=== PATIENT | female | born 1995 | race Caucasian/White ===

== ENCOUNTER 2017-11-30 02:02 | Emergency (ER) | payer BC ==
[2017-11-30] MEDS ORDERED: TORAdol 30 mg Injection IV ONE (02:25)
--- NOTE | 2017-11-30 02:25 | ERPHSYRPT ---
- History of Present Illness Time Seen by Provider: 11/30/17 02:20 Historian: patient Exam Limitations: no limitations Patient Subjective Stated Complaint: pt states she has been having pain since approx 2200 and has been increasing since. Triage Nursing Assessment: pt alert and oriented, asnwers questions approp. pt ambulatory with steady gait noted. respirations nonlabored with lungs cta. skin pink warm and dry. heart rate 66 on monitor, sinus rhythm. Physician History: 22 y/o female comes to the ER with complaints of epigastric abdominal pain that started at 11 pm this evening. Pt describes the pain as sharp, constant, 6/10, and pt has not taken any pain meds. Pt denies any fever, chills, nausea, vomiting, diarrhea, constipation or urinary symptoms. No surgical history. Timing/Duration: today Activities at Onset: none Quality: sharpness Abdominal Pain Onset Location: epigastric Pain Radiation: no radiation Severity of Pain-Max: moderate Severity of Pain-Current: moderate Modifying Factors: Improves With: nothing Associated Symptoms: denies symptoms Previous symptoms: no prior history Allergies/Adverse Reactions: No Known Drug Allergies Allergy (Verified 11/30/17 02:24) Home Medications: Dextroamphetamine/Amphetamine [Adderall 20 mg Tablet] 20 mg PO DAILY 11/30/17 [ History] Hx Tetanus, Diphtheria Vaccination/Date Given: No Hx Influenza Vaccination/Date Given: No Hx Pneumococcal Vaccination/Date Given: No Immunizations Up to Date: Yes - Review of Systems Constitutional: No Fever, No Chills Eyes: No Symptoms Ears, Nose, & Throat: No Symptoms Respiratory: No Cough, No Dyspnea Cardiac: No Chest Pain, No Edema, No Syncope Abdominal/Gastrointestinal: Abdominal Pain, No Nausea, No Vomiting, No Diarrhea Genitourinary Symptoms: No Dysuria Musculoskeletal: No Back Pain, No Neck Pain Skin: No Rash Neurological: No Dizziness, No Focal Weakness, No Sensory Changes Psychological: No Symptoms Endocrine: No Symptoms All Other Systems: Reviewed and Negative - Past Medical History Pertinent Past Medical History: No Neurological History: No Pertinent History ENT History: No Pertinent History Cardiac History: No Pertinent History Respiratory History: No Pertinent History Endocrine Medical History: No Pertinent History Musculoskeletal History: No Pertinent History GI Medical History: No Pertinent History History: No Pertinent History Psycho-Social History: No Pertinent History Female Reproductive Disorders: No Pertinent History - Past Surgical History Past Surgical History: No Cardiac: No Pertinent History Respiratory: No Pertinent History Gastrointestinal: No Pertinent History Genitourinary: No Pertinent History - Social History Smoking Status: Former smoker How long have you smoked: 4 yrs Exposure to second hand smoke: No Drug Use: none Patient Lives Alone: Yes - Female History Hx Last Menstrual Period: currently Hx Now: No - Nursing Vital Signs Nursing Vital Signs: Initial Vital Signs Temperature 97.4 F 11/30/17 02:07 Pulse Rate 66 11/30/17 02:07 Respiratory Rate 16 11/30/17 02:07 Blood Pressure 107/75 11/30/17 02:07 O2 Sat by Pulse Oximetry 100 11/30/17 02:07 Pain Scale Pain Intensity 5 - Physical Exam General Appearance: no apparent distress, alert Eye Exam: PERRL/EOMI, eyes nml inspection Ears, Nose, Throat Exam: normal ENT inspection, pharynx normal, moist mucous membranes Neck Exam: normal inspection, non-tender, supple, full range of motion Respiratory Exam: normal breath sounds, lungs clear, No respiratory distress Cardiovascular Exam: regular rate/rhythm, normal heart sounds Gastrointestinal/Abdomen Exam: soft, normal bowel sounds, tenderness, No distention, No mass Back Exam: normal inspection, normal range of motion, No CVA tenderness, No vertebral tenderness Extremity Exam: normal inspection, normal range of motion, pelvis stable Neurologic Exam: alert, oriented x 3, cooperative, normal mood/affect, nml cerebellar function, sensation nml, No motor deficits Skin Exam: normal color, warm, dry SpO2: 100 Oxygen Delivery: Room Air - Course Nursing assessment & vital signs reviewed: Yes EKG Interpreted by Me: RATE, NORMAL AXIS, NORMAL INTERVALS, NORMAL QRS, NORMAL ST-T Ordered Tests: Active Orders 24 hr Category Date Time Status IV Insertion STAT Care 11/30/17 02:25 Active ABDOMEN AND PELVIS W CONTRAST [CT] Stat Exams 11/30/17 02:25 Taken AMYLASE Stat Lab 11/30/17 02:32 Completed CBC W DIFF Stat Lab 11/30/17 02:32 Completed CMP Stat Lab 11/30/17 02:32 Completed HCG QUALITATIVE,SERUM Stat Lab 11/30/17 02:32 Completed LIPASE Stat Lab 11/30/17 02:32 Completed Lactic Acid Stat Lab 11/30/17 02:32 Completed UA W/ MICROSCOPIC Stat Lab 11/30/17 03:06 Completed Medication Summary Discontinued Medications Generic Name Dose Route Start Last Admin Trade Name Regan PRN Reason Stop Dose Admin Ketorolac Tromethamine 30 mg 11/30/17 02:25 11/30/17 02:34 Toradol 30 Mg Injection IV 11/30/17 02:26 30 mg STAT ONE Administration Ketorolac Tromethamine Confirm 11/30/17 02:27 Toradol 30 Mg Injection Administered 11/30/17 02:28 Dose 30 mg .ROUTE .STK-MED ONE Lab/Rad Data: Laboratory Result Diagrams 11/30/17 02:32 11/30/17 02:32 Laboratory Results 11/30/17 11/30/17 11/30/17 Range/Units 03:06 02:32 02:32 WBC (4.0-10.5) K/mm3 RBC (4.1-5.4) M/mm3 Hgb (12.0-16.0) gm/dl Hct (35-47) % MCV (78-100) fl MCH (26-32) pg MCHC (32-36) g/dl RDW (11.5-14.0) % Plt Count (150-450) K/mm3 MPV (6-9.5) fl Gran % (36.0-66.0) % Eos # (Auto) (0-0.5) Absolute Lymphs (auto) (1.0-4.6) Absolute Monos (auto) (0.0-1.3) Lymphocytes % (24.0-44.0) % Monocytes % (0.0-12.0) % Eosinophils % (0.00-5.0) % Basophils % (0.0-0.4) % Absolute Granulocytes (1.4-6.9) Basophils # (0-0.4) Sodium 141 (137-145) mmol/L Potassium 4.0 (3.5-5.1) mmol/L Chloride 106 (98-107) mmol/L Carbon Dioxide 25 (22-30) mmol/L Anion Gap 13.8 (5-15) MEQ/L BUN 13 (7-17) mg/dL Creatinine 0.69 (0.52-1.04) mg/dL Estimated GFR > 60.0 ML/MIN Glucose 90 (74-106) mg/dL Lactic Acid (0.4-2.0) Calcium 9.5 (8.4-10.2) mg/dL Total Bilirubin 0.20 (0.2-1.3) mg/dL AST 21 (14-36) U/L ALT 14 (0-35) U/L Alkaline Phosphatase 68 (38-126) U/L Serum Total Protein 7.6 (6.3-8.2) g/dL Albumin 4.4 (3.5-5.0) g/dL Amylase 66 (30-110) U/L Lipase 91 (23-300) U/L Serum , Qual NEGATIVE (Negative) Ur Collection Type VOID Urine Color YELLOW (YELLOW) Urine Appearance CLEAR (CLEAR) Urine pH 5.0 (5-6) Ur Specific [place] 1.025 (1.005-1.025) Urine Protein NEGATIVE (Negative) Urine Ketones NEGATIVE (NEGATIVE) Urine Blood 50 (0-5) Jeffrey/ul Urine Nitrite NEGATIVE (NEGATIVE) Urine Bilirubin NEGATIVE (NEGATIVE) Urine Urobilinogen NORMAL (0-1) mg/dL Ur Leukocyte Esterase NEGATIVE (NEGATIVE) Urine Microscopic RBC 5-10 (0-2) /HPF Urine Microscopic WBC 0-2 (0-5) /HPF Ur Epithelial Cells MODERATE (FEW) /HPF Urine Bacteria FEW (NEGATIVE) /HPF Urine Mucus MODERATE (NEGATIVE) /HPF Urine Culture Reflexed NO (NO) Urine Glucose NEGATIVE (NEGATIVE) mg/dL Specimen Received 11/30/17 0300 11/30/17 11/30/17 Range/Units 02:32 02:32 WBC 8.7 (4.0-10.5) K/mm3 RBC 4.52 (4.1-5.4) M/mm3 Hgb 12.5 (12.0-16.0) gm/dl Hct 40.8 (35-47) % MCV 90.3 (78-100) fl MCH 27.7 (26-32) pg MCHC 30.6 L (32-36) g/dl RDW 13.6 (11.5-14.0) % Plt Count 236 (150-450) K/mm3 MPV 9.4 (6-9.5) fl Gran % 56.6 (36.0-66.0) % Eos # (Auto) 0.30 (0-0.5) Absolute Lymphs (auto) 2.79 (1.0-4.6) Absolute Monos (auto) 0.65 (0.0-1.3) Lymphocytes % 32.2 (24.0-44.0) % Monocytes % 7.5 (0.0-12.0) % Eosinophils % 3.5 (0.00-5.0) % Basophils % 0.2 (0.0-0.4) % Absolute Granulocytes 4.91 (1.4-6.9) Basophils # 0.02 (0-0.4) Sodium (137-145) mmol/L Potassium (3.5-5.1) mmol/L Chloride (98-107) mmol/L Carbon Dioxide (22-30) mmol/L Anion Gap (5-15) MEQ/L BUN (7-17) mg/dL Creatinine (0.52-1.04) mg/dL Estimated GFR ML/MIN Glucose (74-106) mg/dL Lactic Acid 0.7 (0.4-2.0) Calcium (8.4-10.2) mg/dL Total Bilirubin (0.2-1.3) mg/dL AST (14-36) U/L ALT (0-35) U/L Alkaline Phosphatase (38-126) U/L Serum Total Protein (6.3-8.2) g/dL Albumin (3.5-5.0) g/dL Amylase (30-110) U/L Lipase (23-300) U/L Serum , Qual (Negative) Ur Collection Type Urine Color (YELLOW) Urine Appearance (CLEAR) Urine pH (5-6) Ur Specific [place] (1.005-1.025) Urine Protein (Negative) Urine Ketones (NEGATIVE) Urine Blood (0-5) Jeffrey/ul Urine Nitrite (NEGATIVE) Urine Bilirubin (NEGATIVE) Urine Urobilinogen (0-1) mg/dL Ur Leukocyte Esterase (NEGATIVE) Urine Microscopic RBC (0-2) /HPF Urine Microscopic WBC (0-5) /HPF Ur Epithelial Cells (FEW) /HPF Urine Bacteria (NEGATIVE) /HPF Urine Mucus (NEGATIVE) /HPF Urine Culture Reflexed (NO) Urine Glucose (NEGATIVE) mg/dL Specimen Received - Progress Progress: improved Progress Note: 11/30/17 04:20 Pt rates her pain as a 4/10 after receiving toradol. The CT scan abd/pelvis shows multiple gallstones, with at least one near the gallbladder neck. There may be a calculus in the cystic duct. No elevation in liver enzymes and no white count or fever. I have offered for the patient to be admitted and get the abdominal US later this morning, but she reports that she has to bring her child to school. She wants to come back after 8 am to get the US done. - Departure Time of Disposition: 04:23 Departure Disposition: Home Clinical Impression: Gallstones Condition: Stable Critical Care Time: No Referrals: MANUEL SNYDER [Primary Care Provider] - Instructions: Gallstones (DC) Additional Instructions: Go to Radiology at 9:30am to have an abdominal ultrasound performed at 9:30am.
[2017-11-30] MEDS ORDERED: TORAdol 30 mg Injection ONE (02:27)
[2017-11-30 02:36] LABS: BASOPHIL % 0.2 % (0.0-0.4); Basophil (Absolute #) 0.02 (0-0.4); Eosinophil % 3.5 % (0.00-5.0); Granulocyte Absolute (ANC) 4.91 (1.4-6.9); Granulocytes % 56.6 % (36.0-66.0); Hematocrit 40.8 % (35-47); Hemoglobin 12.5 gm/dl (12.0-16.0); Lymphocyte (Absolute #) 2.79 (1.0-4.6); Lymphocytes % 32.2 % (24.0-44.0); Mean Cell Volume 90.3 fl (78-100); Mean Corpuscular Hemoglobin 27.7 pg (26-32); Mean Corpuscular Hgb Concent. 30.6 g/dl (32-36); Mean Platelet Volume 9.4 fl (6-9.5); Monocyte (Absolute #) 0.65 (0.0-1.3); Monocytes % 7.5 % (0.0-12.0); Platelet Count 236 K/mm3 (150-450); Red Blood Count 4.52 M/mm3 (4.1-5.4); Red Cell Distribution Width 13.6 % (11.5-14.0); White Blood Count 8.7 K/mm3 (4.0-10.5)
[2017-11-30 02:57] LABS: ALBUMIN 4.4 g/dL (3.5-5.0); ALKALINE PHOSPHATASE 68 U/L (38-126); AMYLASE 66 U/L (30-110); ANION GAP 13.8 MEQ/L (5-15); BLOOD UREA NITROGEN 13 mg/dL (7-17); CHLORIDE 106 mmol/L (98-107); Calcium 9.5 mg/dL (8.4-10.2); Carbon Dioxide 25 mmol/L (22-30); Creatinine 1 0.69 mg/dL (0.52-1.04); Glucose 90 mg/dL (74-106); LIPASE 91 U/L (23-300); SGOT/AST 21 U/L (14-36); SGPT/ALT 14 U/L (0-35); SODIUM 141 mmol/L (137-145); Total Protein 7.6 g/dL (6.3-8.2)
[2017-11-30 03:16] LABS: Appearance CLEAR (CLEAR); Bilirubin NEGATIVE (NEGATIVE); Blood 50 Ery/ul (0-5); Glucose NEGATIVE (NEGATIVE); Ketones NEGATIVE (NEGATIVE); Leukocyte Esterase NEGATIVE (NEGATIVE); Nitrite NEGATIVE (NEGATIVE); Protein,Urine Dip NEGATIVE (Negative); Specific Gravity 1.025 (1.005-1.025); Urobilinogen NORMAL mg/dL (0-1)
[2017-11-30 03:17] LABS: Bacteria FEW /HPF (NEGATIVE); Epithelial Cells MODERATE /HPF (FEW); Mucus MODERATE /HPF (NEGATIVE); WBC 0-2 /HPF (0-5)
[2017-11-30 03:49] VITALS: PULSE 78
[2017-11-30 04:13] VITALS: O2SAT 100
[2017-11-30 04:24] VITALS: BP 105/49
--- NOTE | 2017-11-30 09:12 | XRAY ---
Indication: Upper abdominal pain. Multiple contiguous axial images obtained through the abdomen and pelvis using 80 cc Isovue 370 contrast only. Comparison: July 05, 2009. Lung bases are clear. Heart is not enlarged. Stomach is distended with food. Noncontrasted stomach and bowel loops appear nonobstructed. Moderate diffuse scattered colonic fecal debris throughout. Appendix not seen. No free air. Gallbladder now moderately distended with a few gallstones, largest 11 mm. No abnormal biliary distention. Tampon in situ. Tiny cul-de-sac fluid presumed physiologic from ruptured/leaking cyst. Remaining liver, gallbladder, pancreas, spleen, adrenal glands, kidneys, ureters, bladder, uterus, and aorta appear unremarkable. No pathologic retroperitoneal lymphadenopathy. Osseous structures intact. Impression: 1. Distended gallbladder with gallstones. Gallbladder sonogram may yield further information. 2. Fecal stasis without obstruction. 3. Tiny cul-de-sac fluid presumed from ruptured/leaking cyst. Comment: Preliminary interpretation was made by C. No discrepancy. CT DI 13.93
== END 2017-11-30 04:40 | disposition home or self-care (01) ==
LOC: ED 02:02
DX: K80.80 Other cholelithiasis without obstruction (principal)
CPT/HCPCS: 36000; 36415; 74177; 80053; 81000; 82150; 83605; 83690; 84703; 85025; 96374; 99283; 99284; J1885

== ENCOUNTER 2017-12-02 05:34 | Emergency (ER) | payer BC ==
[2017-12-02] MEDS ORDERED: MORPHINE SULFATE 4 MG INJ IV ONE (06:04)
[2017-12-02] MEDS ORDERED: Zofran 4 MG/2 ML VIAL IV ONE (06:05)
[2017-12-02] MEDS ORDERED: Zofran 4 MG/2 ML VIAL ONE (06:07)
[2017-12-02] MEDS ORDERED: MORPHINE SULFATE 4 MG INJ ONE (06:08)
[2017-12-02] MEDS ORDERED: Sodium Chloride 0.9% 1000 ML 1,000 ML IV STA (06:10)
--- NOTE | 2017-12-02 06:10 | ERPHSYRPT ---
- History of Present Illness Time Seen by Provider: 12/02/17 06:00 Historian: patient Exam Limitations: no limitations Patient Subjective Stated Complaint: Was here on the and was told that she has gall stones and to come back if the pain got worse. She followed up with Lia Romero and was told that she couldn't get in to see the surgeon until the . Triage Nursing Assessment: Pt A&O x3, Was here on the and was told that she has gall stones and to come back if the pain got worse. She followed up with Lia Romero and was told that she couldn't get in to see the surgeon until the . bowel sounds heard in all 4 quadrants, last bm 12/01/2017 with no issues, pain in all quadrants of abdomen during palpation, lungs clear, pulses normal, vitals wnl, bp 97/75, doesn't appear to be in any distress Physician History: 22 y/o female comes to the ER with complaints of epigastric and RUQ abdominal pain that started early this morning waking her up from her sleep. Pt was diagnosed with gallstones 2 days ago. Pt describes the pain as sharp, intermittent, 7/10, with radiation to back and pt has not taken any pain meds. Pt denies any fever, chills, nausea, vomiting, diarrhea or decrease appetite. Timing/Duration: today Activities at Onset: none Quality: sharpness Abdominal Pain Onset Location: RUQ, epigastric Pain Radiation: back Severity of Pain-Max: moderate Severity of Pain-Current: moderate Modifying Factors: Improves With: nothing Associated Symptoms: denies symptoms Previous symptoms: same symptoms as today Allergies/Adverse Reactions: No Known Drug Allergies Allergy (Verified 12/02/17 05:48) Home Medications: Dextroamphetamine/Amphetamine [Adderall 20 mg Tablet] 20 mg PO DAILY 11/30/17 [ History] Hx Tetanus, Diphtheria Vaccination/Date Given: No Hx Influenza Vaccination/Date Given: No Hx Pneumococcal Vaccination/Date Given: No - Review of Systems Constitutional: No Fever, No Chills Eyes: No Symptoms Ears, Nose, & Throat: No Symptoms Respiratory: No Cough, No Dyspnea Cardiac: No Chest Pain, No Edema, No Syncope Abdominal/Gastrointestinal: Abdominal Pain, No Nausea, No Vomiting, No Diarrhea Genitourinary Symptoms: No Dysuria Musculoskeletal: No Back Pain, No Neck Pain Skin: No Rash Neurological: No Dizziness, No Focal Weakness, No Sensory Changes Psychological: No Symptoms Endocrine: No Symptoms All Other Systems: Reviewed and Negative - Past Medical History Pertinent Past Medical History: No Neurological History: No Pertinent History ENT History: No Pertinent History Cardiac History: No Pertinent History Respiratory History: No Pertinent History Endocrine Medical History: No Pertinent History Musculoskeletal History: No Pertinent History GI Medical History: No Pertinent History History: No Pertinent History Psycho-Social History: No Pertinent History Female Reproductive Disorders: No Pertinent History - Past Surgical History Past Surgical History: No Cardiac: No Pertinent History Respiratory: No Pertinent History Gastrointestinal: No Pertinent History Genitourinary: No Pertinent History - Social History Smoking Status: Former smoker How long have you smoked: 4 yrs Exposure to second hand smoke: No Drug Use: none Patient Lives Alone: Yes - Female History Hx Last Menstrual Period: 11/29/2017 Hx Now: No - Nursing Vital Signs Nursing Vital Signs: Initial Vital Signs Temperature 97.6 F 12/02/17 05:38 Pulse Rate 69 12/02/17 05:38 Blood Pressure 97/75 12/02/17 05:38 O2 Sat by Pulse Oximetry 99 12/02/17 05:38 Pain Scale Pain Intensity 7 - Physical Exam General Appearance: no apparent distress, alert Eye Exam: PERRL/EOMI, eyes nml inspection Ears, Nose, Throat Exam: normal ENT inspection, pharynx normal, moist mucous membranes Neck Exam: normal inspection, non-tender, supple, full range of motion Respiratory Exam: normal breath sounds, lungs clear, No respiratory distress Cardiovascular Exam: regular rate/rhythm, normal heart sounds Gastrointestinal/Abdomen Exam: soft, normal bowel sounds, tenderness ( epigastric and RUQ abdominal tenderness), No mass Back Exam: normal inspection, normal range of motion, No CVA tenderness, No vertebral tenderness Extremity Exam: normal inspection, normal range of motion, pelvis stable Neurologic Exam: alert, oriented x 3, cooperative, normal mood/affect, nml cerebellar function, sensation nml, No motor deficits Skin Exam: normal color, warm, dry SpO2: 99 Oxygen Delivery: Room Air - Course Nursing assessment & vital signs reviewed: Yes Ordered Tests: Active Orders 24 hr Category Date Time Status IV Insertion STAT Care 12/02/17 06:04 Active CBC W DIFF Stat Lab 12/02/17 06:22 Completed CMP Stat Lab 12/02/17 06:22 Completed Medication Summary Generic Name Dose Route Start Last Admin Trade Name Regan PRN Reason Stop Dose Admin Sodium Chloride 1,000 mls @ 999 mls/hr 12/02/17 06:10 12/02/17 06:21 Sodium Chloride 0.9% 1000 Ml IV 12/02/17 07:10 999 mls/hr .[id number] STA Administration Discontinued Medications Generic Name Dose Route Start Last Admin Trade Name Regan PRN Reason Stop Dose Admin Sodium Chloride Confirm 12/02/17 06:21 Sodium Chloride 0.9% 1000 Ml Administered 12/02/17 06:22 Dose 1,000 mls @ ud .ROUTE .STK-MED ONE Morphine Sulfate 4 mg 12/02/17 06:04 12/02/17 06:21 Morphine Sulfate 4 Mg Inj IV 12/02/17 06:05 4 mg STAT ONE Administration Morphine Sulfate Confirm 12/02/17 06:08 Morphine Sulfate 4 Mg Inj Administered 12/02/17 06:09 Dose 4 mg .ROUTE .STK-MED ONE Ondansetron HCl 4 mg 12/02/17 06:05 12/02/17 06:21 Zofran 4 Mg/2 Ml Vial IV 12/02/17 06:06 4 mg STAT ONE Administration Ondansetron HCl Confirm 12/02/17 06:07 Zofran 4 Mg/2 Ml Vial Administered 12/02/17 06:08 Dose 4 mg .ROUTE .STK-MED ONE Lab/Rad Data: Laboratory Result Diagrams 12/02/17 06:22 12/02/17 06:22 Laboratory Results 12/02/17 12/02/17 Range/Units 06:22 06:22 WBC 7.0 (4.0-10.5) K/mm3 RBC 4.16 (4.1-5.4) M/mm3 Hgb 11.9 L (12.0-16.0) gm/dl Hct 37.3 (35-47) % MCV 89.7 (78-100) fl MCH 28.6 (26-32) pg MCHC 31.9 L (32-36) g/dl RDW 13.3 (11.5-14.0) % Plt Count 217 (150-450) K/mm3 MPV 9.4 (6-9.5) fl Gran % 54.4 (36.0-66.0) % Eos # (Auto) 0.30 (0-0.5) Absolute Lymphs (auto) 2.29 (1.0-4.6) Absolute Monos (auto) 0.59 (0.0-1.3) Lymphocytes % 32.6 (24.0-44.0) % Monocytes % 8.4 (0.0-12.0) % Eosinophils % 4.3 (0.00-5.0) % Basophils % 0.3 (0.0-0.4) % Absolute Granulocytes 3.82 (1.4-6.9) Basophils # 0.02 (0-0.4) Sodium 140 (137-145) mmol/L Potassium 4.0 (3.5-5.1) mmol/L Chloride 106 (98-107) mmol/L Carbon Dioxide 24 (22-30) mmol/L Anion Gap 13.6 (5-15) MEQ/L BUN 17 (7-17) mg/dL Creatinine 0.62 (0.52-1.04) mg/dL Estimated GFR > 60.0 ML/MIN Glucose 104 (74-106) mg/dL Calcium 9.2 (8.4-10.2) mg/dL Total Bilirubin < 0.10 L (0.2-1.3) mg/dL AST 20 (14-36) U/L ALT 15 (0-35) U/L Alkaline Phosphatase 78 (38-126) U/L Serum Total Protein 6.8 (6.3-8.2) g/dL Albumin 3.9 (3.5-5.0) g/dL - Progress Progress: improved Progress Note: 12/02/17 06:37 The patient feels better after receiving morphine and zofran. The liver enzymes are within normal limits. The patient will be d/c home on percocet and zofran. Pt will F/U with general surgeon on 12/16. - Departure Time of Disposition: 06:38 Departure Disposition: Home Clinical Impression: Gallstones Condition: Stable Critical Care Time: No Referrals: MANUEL SNYDER [Primary Care Provider] - Instructions: Gallstones (DC) Additional Instructions: Follow up with your general surgeon on 12/16 as scheduled. Return to the ER if you should have worsening abdominal pain, nausea, vomiting, fever or chills. Prescriptions: Ondansetron ODT 4 MG [Zofran Odt 4 mg] 4 mg PO Q6H PRN PRN #20 tab.rapdis PRN Reason: Nausea/Vomiting Oxycodone HCl/Acetaminophen [Percocet 5-325 mg Tablet] 1 each PO QID PRN #20 tablet MDD 4 PRN Reason: Pain
[2017-12-02] MEDS ORDERED: Sodium Chloride 0.9% 1000 ML 1,000 ML ONE (06:21)
[2017-12-02 06:24] LABS: BASOPHIL % 0.3 % (0.0-0.4); Basophil (Absolute #) 0.02 (0-0.4); Eosinophil % 4.3 % (0.00-5.0); Granulocyte Absolute (ANC) 3.82 (1.4-6.9); Granulocytes % 54.4 % (36.0-66.0); Hematocrit 37.3 % (35-47); Hemoglobin 11.9 gm/dl (12.0-16.0); Lymphocyte (Absolute #) 2.29 (1.0-4.6); Lymphocytes % 32.6 % (24.0-44.0); Mean Cell Volume 89.7 fl (78-100); Mean Corpuscular Hemoglobin 28.6 pg (26-32); Mean Corpuscular Hgb Concent. 31.9 g/dl (32-36); Mean Platelet Volume 9.4 fl (6-9.5); Monocyte (Absolute #) 0.59 (0.0-1.3); Monocytes % 8.4 % (0.0-12.0); Platelet Count 217 K/mm3 (150-450); Red Blood Count 4.16 M/mm3 (4.1-5.4); Red Cell Distribution Width 13.3 % (11.5-14.0)
[2017-12-02 06:40] LABS: ALBUMIN 3.9 g/dL (3.5-5.0); ALKALINE PHOSPHATASE 78 U/L (38-126); ANION GAP 13.6 MEQ/L (5-15); BILIRUBIN,TOTAL < 0.10 mg/dL (0.2-1.3); BLOOD UREA NITROGEN 17 mg/dL (7-17); CHLORIDE 106 mmol/L (98-107); Calcium 9.2 mg/dL (8.4-10.2); Carbon Dioxide 24 mmol/L (22-30); Creatinine 1 0.62 mg/dL (0.52-1.04); Glucose 104 mg/dL (74-106); SGOT/AST 20 U/L (14-36); SGPT/ALT 15 U/L (0-35); SODIUM 140 mmol/L (137-145); Total Protein 6.8 g/dL (6.3-8.2)
[2017-12-02 06:55] VITALS: BP 105/70; PULSE 77; O2SAT 100
== END 2017-12-02 06:55 | disposition home or self-care (01) ==
LOC: ED 05:34
DX: K80.80 Other cholelithiasis without obstruction (principal)
CPT/HCPCS: 36000; 36415; 80053; 85025; 96360; 96374; 96375; 99283; 99284; J2270; J2405

== ENCOUNTER 2017-12-07 22:45 | Emergency (ER) | payer BC ==
[2017-12-07] MEDS: BENADRYL 50 MG/ML IV ONE (23:53)
[2017-12-07] MEDS: solu-MEDROL 125 MG IV ONE (23:53)
[2017-12-08] MEDS ORDERED: TORAdol 30 mg Injection ONE
[2017-12-08] MEDS ORDERED: Sodium Chloride 0.9% 1000 ML 1,000 ML ONE
--- NOTE | 2017-12-08 00:02 | ERPHSYRPT ---
- History of Present Illness Time Seen by Provider: 12/07/17 23:00 Historian: patient Exam Limitations: clinical condition Patient Subjective Stated Complaint: Pt arrives to ER with c/o midsternal chest pain that radiates down into her RUQ abdomen states was seen her 1 week ago and found out her gallbladder is bad and needs removed. States was told to come back if started vomiting, which pt began around 2100 tonight when pain became worse accompanied by headache. States pain is still present and as strong as before. Triage Nursing Assessment: pt does not appear to be in any distress at this time. States RUQ abdomen is tender upon palpation. Lungs clear. Bowel sounds present and WDL in all four quadrants. Heart sounds WDL Physician History: PATIENT RECENTLY DIAGNOSED WITH GALLSTONES ON 11/30/2017 VIA ULTRASOUND, COMPLAINS OF EPIGASTRIC PAINS THROUGHTOUT THE DAY RADIATES TO RIGHT SHOULDER BLADE. DENIES FEVER, CHILLS. Timing/Duration: today Activities at Onset: none Quality: sharpness Abdominal Pain Onset Location: RUQ, epigastric Pain Radiation: scapula Severity of Pain-Max: moderate Severity of Pain-Current: moderate Modifying Factors: Improves With: vomiting Associated Symptoms: nausea, vomiting Previous symptoms: same symptoms as today Allergies/Adverse Reactions: No Known Drug Allergies Allergy (Verified 12/07/17 23:00) Home Medications: Dextroamphetamine/Amphetamine [Adderall 20 mg Tablet] 20 mg PO DAILY 11/30/17 [ History] Hx Tetanus, Diphtheria Vaccination/Date Given: No Hx Influenza Vaccination/Date Given: No Hx Pneumococcal Vaccination/Date Given: No Immunizations Up to Date: Yes - Review of Systems Constitutional: No Fever, No Chills Eyes: No Symptoms Ears, Nose, & Throat: No Symptoms Respiratory: No Symptoms, No Cough, No Dyspnea Cardiac: No Symptoms, No Chest Pain, No Edema, No Syncope Abdominal/Gastrointestinal: Abdominal Pain, Nausea, Vomiting, No Diarrhea Genitourinary Symptoms: No Dysuria Musculoskeletal: No Symptoms, No Back Pain, No Neck Pain Skin: No Rash Neurological: No Dizziness, No Focal Weakness, No Sensory Changes Psychological: No Symptoms Endocrine: No Symptoms All Other Systems: Reviewed and Negative - Past Medical History Pertinent Past Medical History: Yes Neurological History: No Pertinent History ENT History: No Pertinent History Cardiac History: No Pertinent History Respiratory History: No Pertinent History Endocrine Medical History: No Pertinent History Musculoskeletal History: No Pertinent History GI Medical History: No Pertinent History History: No Pertinent History Psycho-Social History: No Pertinent History Female Reproductive Disorders: No Pertinent History - Past Surgical History Past Surgical History: Yes Cardiac: No Pertinent History Respiratory: No Pertinent History Gastrointestinal: No Pertinent History Genitourinary: No Pertinent History - Social History Smoking Status: Never smoker How long have you smoked: 4 yrs Exposure to second hand smoke: No Drug Use: none Patient Lives Alone: No - Female History Hx Last Menstrual Period: last thursday Hx Now: No - Nursing Vital Signs Nursing Vital Signs: Initial Vital Signs Temperature 97.7 F 12/07/17 22:50 Pulse Rate 76 12/07/17 22:50 Respiratory Rate 18 12/07/17 22:50 Blood Pressure 115/71 12/07/17 22:50 O2 Sat by Pulse Oximetry 98 12/07/17 22:50 Pain Scale Pain Intensity 0 - Physical Exam General Appearance: mild distress Eye Exam: PERRL/EOMI, eyes nml inspection Ears, Nose, Throat Exam: normal ENT inspection, pharynx normal, moist mucous membranes Neck Exam: normal inspection, non-tender, supple, full range of motion Respiratory Exam: normal breath sounds, lungs clear, No respiratory distress Cardiovascular Exam: regular rate/rhythm, normal heart sounds Gastrointestinal/Abdomen Exam: soft, normal bowel sounds, tenderness (EPIGASTRIC , RIGTH UPPER QUAD TENDERNESS), No mass Back Exam: normal inspection, normal range of motion, No CVA tenderness, No vertebral tenderness Extremity Exam: normal inspection, normal range of motion, pelvis stable Neurologic Exam: alert, oriented x 3, cooperative, normal mood/affect, nml cerebellar function, sensation nml, No motor deficits Skin Exam: normal color, warm, dry SpO2 Interpretation: normal SpO2: 98 Oxygen Delivery: Room Air Ordered Tests: Active Orders 24 hr Category Date Time Status Clean Catch Urine Specimen STAT Care 12/07/17 23:56 Active Medication Summary Discontinued Medications Generic Name Dose Route Start Last Admin Trade Name Freq PRN Reason Stop Dose Admin Diphenhydramine HCl 50 mg 12/07/17 23:41 12/07/17 23:53 Benadryl 50 Mg/Ml IV 12/07/17 23:42 Not Given STAT ONE Fentanyl Citrate 100 mcg 12/08/17 00:26 12/08/17 00:35 Sublimaze 100 Mcg/2 Ml IV 12/08/17 00:27 100 mcg STAT ONE Administration Fentanyl Citrate Confirm 12/08/17 00:28 Sublimaze 100 Mcg/2 Ml Administered 12/08/17 00:29 Dose 100 mcg .ROUTE .STK-MED ONE Sodium Chloride 1,000 mls @ 999 mls/hr 12/07/17 23:56 12/08/17 00:06 Sodium Chloride 0.9% 1000 Ml IV 12/08/17 00:56 999 mls/hr .Q1H1M STA Administration Sodium Chloride Confirm 12/08/17 00:00 Sodium Chloride 0.9% 1000 Ml Administered 12/08/17 00:01 Dose 1,000 mls @ ud .ROUTE .STK-MED ONE Ketorolac Tromethamine 30 mg 12/07/17 23:56 12/08/17 00:06 Toradol 30 Mg Injection IV 12/07/17 23:57 30 mg STAT ONE Administration Ketorolac Tromethamine Confirm 12/08/17 00:00 Toradol 30 Mg Injection Administered 12/08/17 00:01 Dose 30 mg .ROUTE .STK-MED ONE Methylprednisolone Sodium Succinate 125 mg 12/07/17 23:41 12/07/17 23:53 Solu-Medrol 125 Mg IV 12/07/17 23:42 Not Given STAT ONE Ondansetron HCl 4 mg 12/07/17 23:56 12/08/17 00:07 Zofran 4 Mg/2 Ml Vial IV 12/07/17 23:57 4 mg STAT ONE Administration Ondansetron HCl Confirm 12/08/17 00:00 Zofran 4 Mg/2 Ml Vial Administered 12/08/17 00:01 Dose 4 mg .ROUTE .STK-MED ONE Ondansetron HCl 4 mg 12/08/17 00:26 12/08/17 00:35 Zofran 4 Mg/2 Ml Vial IV 12/08/17 00:27 4 mg STAT ONE Administration Ondansetron HCl Confirm 12/08/17 00:28 Zofran 4 Mg/2 Ml Vial Administered 12/08/17 00:29 Dose 4 mg .ROUTE .STK-MED ONE Lab/Rad Data: Laboratory Result Diagrams 12/07/17 00:04 12/07/17 00:04 Laboratory Results 12/07/17 12/07/17 12/07/17 Range/Units 01:03 00:04 00:04 WBC 7.8 (4.0-10.5) K/mm3 RBC 4.47 (4.1-5.4) M/mm3 Hgb 12.8 (12.0-16.0) gm/dl Hct 39.4 (35-47) % MCV 88.1 (78-100) fl MCH 28.6 (26-32) pg MCHC 32.5 (32-36) g/dl RDW 13.3 (11.5-14.0) % Plt Count 255 (150-450) K/mm3 MPV 9.6 H (6-9.5) fl Gran % 72.1 H (36.0-66.0) % Eos # (Auto) 0.04 (0-0.5) Absolute Lymphs (auto) 1.63 (1.0-4.6) Absolute Monos (auto) 0.49 (0.0-1.3) Lymphocytes % 21.0 L (24.0-44.0) % Monocytes % 6.3 (0.0-12.0) % Eosinophils % 0.5 (0.00-5.0) % Basophils % 0.1 (0.0-0.4) % Absolute Granulocytes 5.58 (1.4-6.9) Basophils # 0.01 (0-0.4) Sodium 139 (137-145) mmol/L Potassium 4.2 (3.5-5.1) mmol/L Chloride 103 (98-107) mmol/L Carbon Dioxide 25 (22-30) mmol/L Anion Gap 15.4 H (5-15) MEQ/L BUN 13 (7-17) mg/dL Creatinine 0.53 (0.52-1.04) mg/dL Estimated GFR > 60.0 ML/MIN Glucose 99 (74-106) mg/dL Calcium 9.9 (8.4-10.2) mg/dL Total Bilirubin 0.50 (0.2-1.3) mg/dL AST 27 (14-36) U/L ALT 23 (0-35) U/L Alkaline Phosphatase 78 (38-126) U/L Serum Total Protein 7.5 (6.3-8.2) g/dL Albumin 4.4 (3.5-5.0) g/dL Amylase 51 (30-110) U/L Lipase 51 (23-300) U/L Ur Collection Type VOID Urine Color YELLOW (YELLOW) Urine Appearance CLEAR (CLEAR) Urine pH 6.0 (5-6) Ur Specific Magazine 1.025 (1.005-1.025) Urine Protein NEGATIVE (Negative) Urine Ketones SMALL (NEGATIVE) Urine Blood NEGATIVE (0-5) Jeffrey/ul Urine Nitrite NEGATIVE (NEGATIVE) Urine Bilirubin NEGATIVE (NEGATIVE) Urine Urobilinogen NORMAL (0-1) mg/dL Ur Leukocyte Esterase TRACE (NEGATIVE) Urine Microscopic RBC 0-2 (0-2) /HPF Urine Microscopic WBC 2-5 (0-5) /HPF Ur Epithelial Cells MODERATE (FEW) /HPF Urine Bacteria FEW (NEGATIVE) /HPF Urine Culture Reflexed NO (NO) Urine Glucose NEGATIVE (NEGATIVE) mg/dL Specimen Received 12/08/17 0110 - Progress Progress Note: 12/08/17 00:02 ADMINISTERED IV NORMAL SALINE 1 LITER/HR, ZOFRAN 4MG TORADOL 30MG IV, FENTANYL 100MCG IV. PAIN RESOLVED NAUSEA PERSIST. 12/08/17 03:21 Counseled pt/family regarding: lab results, diagnosis, need for follow-up - Departure Time of Disposition: 03:30 Departure Disposition: Home Clinical Impression: BILIARY COLIC, CHOLELITHIASIS Condition: Stable Critical Care Time: No Referrals: MANUEL SNYDER [Primary Care Provider] - Additional Instructions: CONTINUE ALL CURRENT MEDICATIONS FOR PAIN AND NAUSEA. BEGIN A CLEAR LIQUID DIET FOR 24 HOURS, THEN ADVANCE DIET TOLERATED. PHENERGAN SUPPOSITORY 25MG PER RECTUM EVERY 4-6 HOURS NEEDED FOR NAUSEA. CONSULT YOUR GENERAL SURGEON TO SCHEDULE EARLIER APPOINTMENT Prescriptions: Promethazine HCl 25 mg Supp [Phenergan 25 mg Supp] 25 mg GA Q4-6HPRN PRN # 10 supp.rect PRN Reason: Nausea
[2017-12-08] MEDS: Sodium Chloride 0.9% 1000 ML 1,000 ML IV STA (00:06)
[2017-12-08] MEDS: TORAdol 30 mg Injection IV ONE (00:06)
[2017-12-08] MEDS: Zofran 4 MG/2 ML VIAL IV ONE ×2 (00:07→00:35)
[2017-12-08 00:08] LABS: BASOPHIL % 0.1 % (0.0-0.4); Basophil (Absolute #) 0.01 (0-0.4); Eosinophil % 0.5 % (0.00-5.0); Eosinophil (Absolute #) 0.04 (0-0.5); Granulocyte Absolute (ANC) 5.58 (1.4-6.9); Granulocytes % 72.1 % (36.0-66.0); Hematocrit 39.4 % (35-47); Hemoglobin 12.8 gm/dl (12.0-16.0); Lymphocyte (Absolute #) 1.63 (1.0-4.6); Mean Cell Volume 88.1 fl (78-100); Mean Corpuscular Hemoglobin 28.6 pg (26-32); Mean Corpuscular Hgb Concent. 32.5 g/dl (32-36); Mean Platelet Volume 9.6 fl (6-9.5); Monocyte (Absolute #) 0.49 (0.0-1.3); Monocytes % 6.3 % (0.0-12.0); Platelet Count 255 K/mm3 (150-450); Red Blood Count 4.47 M/mm3 (4.1-5.4); Red Cell Distribution Width 13.3 % (11.5-14.0); White Blood Count 7.8 K/mm3 (4.0-10.5)
[2017-12-08 00:14] LABS: ALBUMIN 4.4 g/dL (3.5-5.0); ALKALINE PHOSPHATASE 78 U/L (38-126); AMYLASE 51 U/L (30-110); ANION GAP 15.4 MEQ/L (5-15); BLOOD UREA NITROGEN 13 mg/dL (7-17); CHLORIDE 103 mmol/L (98-107); Calcium 9.9 mg/dL (8.4-10.2); Carbon Dioxide 25 mmol/L (22-30); Creatinine 1 0.53 mg/dL (0.52-1.04); Glucose 99 mg/dL (74-106); LIPASE 51 U/L (23-300); Potassium 4.2 mmol/L (3.5-5.1); SGOT/AST 27 U/L (14-36); SGPT/ALT 23 U/L (0-35); SODIUM 139 mmol/L (137-145); Total Protein 7.5 g/dL (6.3-8.2)
[2017-12-08] MEDS ORDERED: Zofran 4 MG/2 ML VIAL ONE ×2 (00:28)
[2017-12-08] MEDS ORDERED: SUBLIMAZE 100 MCG/2 ML ONE (00:28)
[2017-12-08] MEDS: SUBLIMAZE 100 MCG/2 ML IV ONE (00:35)
[2017-12-08 01:35] LABS: Appearance CLEAR (CLEAR); Bilirubin NEGATIVE (NEGATIVE); Blood NEGATIVE Ery/ul (0-5); Glucose NEGATIVE (NEGATIVE); Ketones SMALL (NEGATIVE); Leukocyte Esterase TRACE (NEGATIVE); Nitrite NEGATIVE (NEGATIVE); Protein,Urine Dip NEGATIVE (Negative); Specific Gravity 1.025 (1.005-1.025); Urobilinogen NORMAL mg/dL (0-1)
[2017-12-08 01:36] LABS: Bacteria FEW /HPF (NEGATIVE); Epithelial Cells MODERATE /HPF (FEW)
[2017-12-08 02:33] VITALS: BP 100/57; PULSE 89
[2017-12-08 03:29] VITALS: O2SAT 98
== END 2017-12-08 04:11 | disposition home or self-care (01) ==
LOC: ED 22:45
DX: K80.50 Calculus of bile duct without cholangitis or cholecystitis without obstruction (principal); K80.20 Calculus of gallbladder without cholecystitis without obstruction
CPT/HCPCS: 36000; 36415; 80053; 81000; 82150; 83690; 85025; 96360; 96374; 96375; 96376; 99283; 99284; J1885; J2405; J3010

== ENCOUNTER 2017-12-28 09:36 | Day surgery (SDC) | payer BC ==
--- NOTE | 2017-12-28 07:54 | HP ---
DATE OF SURGERY: 12/28/2017 HISTORY OF PRESENT ILLNESS: The patient is a 22 year-old had pain over a couple of weeks, epigastric pain radiating to her back associated with one vomiting episode. No change in bowel movements. No jaundice. No liver problems in the past or hepatitis. Ultrasound CT showed cholelithiasis. It was felt she had symptomatic cholelithiasis, chronic cholecystitis. Worse with meal. PAST MEDICAL HISTORY: Adult attention deficit hyperactivity disorder. She had some history of some reflux and some anxiety in the past. MEDICATIONS: Adderall, Tri-Sprintec. ALLERGIES: NKDA. FAMILY HISTORY: Negative in regards to this problem. SOCIAL HISTORY: No alcohol abuse. She is a former smoker according to history provided. REVIEW OF SYSTEMS: Twelve systems reviewed per admission assessment. No chest pain or palpitations other systems negative or noncontributory as above and per preadmission questionnaire. PHYSICAL EXAMINATION: GENERAL: No acute distress. HEENT: Sclerae nonicteric. NECK: No JVD. CHEST: Equal excursion, nonlabored breathing. CVS: Regular rate and rhythm. ABDOMEN: Soft, some tenderness in the epigastrium. No peritoneal signs. EXTREMITIES: No significant edema. NEURO: Alert, oriented, moving extremities symmetrically. No gross motor deficits noted. IMPRESSION: Symptomatic cholelithiasis, probable cholecystitis. I feel the patient will benefit from cholecystectomy. She was shown the gallbladder pamphlet and risk sheet, explained the procedure in detail but not limited to bleeding, infection, small risk of bowel injury or trocar injury, small risk of hernia, small risk of bile leak, bile duct injury, retained stone or sludge possibly requiring further procedure either open or ERCP, general risk of anesthesia, deep venous thrombosis, pulmonary embolism, pneumonia, perioperative risk of aches, pains, bloating, constipation and/or loose stools possibly even chronic in nature. She understands possibility that the procedure may not improve her symptoms that she may need further work up and/or testing, other studies, endoscopy, procedures or referrals. She understands as well as the possibility of need to convert to an open procedure, will proceed with laparoscopic cholecystectomy with possible as an outpatient.
[~2017-12-28 09:36] MED LIST: Lactated Ringers 1,000 ML IV ONE; Sensorcaine 0.25% 10 ML ONE
[2017-12-28] MEDS ORDERED: DIPRIVAN 200 MG/20 ML IV ONE (09:37)
[2017-12-28] MEDS ORDERED: SUBLIMAZE 250 MCG/5 ML IJ ONE (09:37)
[2017-12-28] MEDS ORDERED: Zemuron 100 MG/10 ML IJ ONE (09:37)
[2017-12-28] MEDS ORDERED: Astramorph-Pf 5 MG/10 ML IJ ONE (09:37)
[2017-12-28] MEDS ORDERED: Zofran 4 MG/2 ML VIAL IV ONE (09:37)
[2017-12-28] MEDS ORDERED: Decadron 4 MG INJ IV ONE (09:37)
[2017-12-28] MEDS ORDERED: Versed 2 MG/2 ML Injection IV ONE (09:37)
[2017-12-28] MEDS ORDERED: TORAdol 30 mg Injection IJ ONE (09:37)
[2017-12-28] MEDS ORDERED: BRIDION 200MG/2ML IV ONE (09:37)
[2017-12-28] MEDS ORDERED: Lactated Ringers 1,000 ML IV SCH (10:30)
[2017-12-28] MEDS ORDERED: MEFOXIN 2 GM PREMIX** 2 GM/50 ML ML IV SCH (11:00)
[2017-12-28] MEDS ORDERED: SUBLIMAZE 100 MCG/2 ML ONE ×2 (13:56→14:07)
[2017-12-28 15:17] VITALS: O2SAT 97
[2017-12-28 15:26] VITALS: BP 114/59; PULSE 78
--- NOTE | 2017-12-29 08:16 | OP ---
SURGERY DATE/TIME: 12/28/2017 1228 PREOPERATIVE DIAGNOSIS: Symptomatic cholelithiasis, probable chronic cholecystitis. POSTOPERATIVE DIAGNOSIS: Acute exacerbation of chronic cholecystitis, cholelithiasis. PROCEDURE: Laparoscopic cholecystectomy. SURGEON: Dr. Aleksandar Tejeda. ANESTHESIA: General. ESTIMATED BLOOD LOSS: Minimal. INDICATIONS: As noted above. Risks and benefits explained in detail but not limited to and consent obtained. DESCRIPTION OF PROCEDURE AND FINDINGS: The patient was taken to the OR. General anesthesia induced. Abdomen prepped and draped in the usual sterile fashion. After official time out and no disagreement with planned procedure, a transverse incision made at the supraumbilical area. Fascia grasped and pulled upward. Veress needle inserted and tested with saline. Pneumoperitoneum accomplished insufflating opening pressure of 0-15. An 11 mm bladeless port and camera inserted without difficulty followed by two - 5 mm right upper quadrant ports and 5 mm epigastric port. There was no evidence of any intra-abdominal injury secondary to trocar insertion. The patient had a very distended, tense gallbladder with thick wall, acute exacerbation of chronic cholecystitis and cholelithiasis. There had been no evidence of any intra-abdominal injury secondary to trocar insertion or Veress needle placement. It was necessary however to make a separate stab wound in the right upper quadrant along the costal margin. Veress needle inserted. 35% of almost clear hydrops carefully removed from the gallbladder allowing it to be grasped and retracted up over the edge of the liver. Dissection carried posterior, lateral to anterior fashion. Extensive inflammatory reaction, this took quite some time but slowly and carefully main cystic artery and cystic duct infundibular junction were slowly and carefully well skeletonized until the critical view obtained both anteriorly and posteriorly. Once this was accomplished cystic duct was then clipped x3 and divided in usual fashion. The cystic artery clipped x3 and divided in usual fashion. It is quite a vascular gallbladder with some pulsatile side branches off the cystic artery directly on the gallbladder wall this is carefully isolated clipped as necessary directly on the gallbladder wall. Just prior to releasing from final attachments to the anterior edge of the liver the liver re-inspected. There had been a raw edge of the anterior edge of the liver and some raw ooze controlled with some brief bursts of pin point cautery. Good hemostasis is noted. Clips are noted in place in cystic duct and cystic artery stumps. There is no sign of any active bleeding or bile leakage. I felt there is no benefit from drain placement at this point. Gallbladder released from final attachments to the anterior edge of the liver the gallbladder placed in Pleatman sac pulled up in 10/11 port site supraumbilical area. Otherwise just prior to removing with Pleatman it was necessary to open the gallbladder and retrieve a moderately large stones with the Clinton clamp allowing the gallbladder and Pleatman sac to be pulled free and passed off. The liver bed is re-inspected. Clips noted in place in cystic duct and cystic artery stumps. There were no signs of any active bleeding or bile leakage. It was felt there is no benefit from drain placement. At this point the fascial defect /11 is closed with puncture closure device under direct vision of the camera with #1 Vicryl. Pneumoperitoneum decompressed. The wound was irrigated out. Skin incision closed with 4-0 Vicryl. Steri-Strips and sterile dressing applied. 0.25% Marcaine local injected along the skin incision fascial defect. The patient tolerated the procedure well. There were no immediate complications. Findings discussed with the family out in the waiting area. She was transferred to the recovery room in stable condition.
== END 2017-12-28 15:30 | disposition home or self-care (01) ==
LOC: SDC 09:36
PROVIDERS: ATTEND Surgery
DX: K80.10 Calculus of gallbladder with chronic cholecystitis without obstruction (principal)
CPT/HCPCS: 84703; 94250; J0694; J1100; J1885; J2250; J2274; J2405; J2704; J3010

== ENCOUNTER 2022-03-28 15:59 | Emergency (ER) | payer OTHER ==
[2022-03-28 16:20] VITALS: BP 97/68; PULSE 92; O2SAT 98
--- NOTE | 2022-03-28 16:22 | ERPHSYRPT ---
- History of Present Illness Time Seen by Provider: 03/28/22 16:15 Source: patient Exam Limitations: no limitations Physician History: Patient is a 26-year-old female with a presenting complaint of pain in the left mandibular area with facial swelling and suspected abscess. She has not contacted a dentist and she desires an antibiotic. Timing/Duration: gradual onset Severity: severe ENT Location: dental Prearrival Treatment: no prearrival treatment Modifying Factors: Improves With: nothing Associated Symptoms: jaw pain (Left mandibular), tooth pain Allergies/Adverse Reactions: No Known Drug Allergies Allergy (Verified 12/22/17 17:27) Home Medications: Dextroamphetamine/Amphetamine [Adderall Xr 20 mg Capsule] 20 mg PO BID 03/28/22 [History] Hx Tetanus, Diphtheria Vaccination/Date Given: No Hx Influenza Vaccination/Date Given: No Hx Pneumococcal Vaccination/Date Given: No - Review of Systems Constitutional: No Fever, No Chills Eyes: No Symptoms Ears, Nose, & Throat: No Symptoms, Other (Carious left mandibular molar with obvious abscess) Respiratory: No Cough, No Dyspnea Cardiac: No Chest Pain, No Edema, No Syncope Abdominal/Gastrointestinal: No Abdominal Pain, No Nausea, No Vomiting, No Diarrhea Genitourinary Symptoms: No Dysuria Musculoskeletal: No Back Pain, No Neck Pain Skin: No Rash Neurological: No Dizziness, No Focal Weakness, No Sensory Changes Psychological: No Symptoms Endocrine: No Symptoms All Other Systems: Reviewed and Negative - Past Medical History Pertinent Past Medical History: No Neurological History: No Pertinent History ENT History: No Pertinent History Cardiac History: No Pertinent History Respiratory History: No Pertinent History Endocrine Medical History: No Pertinent History Musculoskeletal History: No Pertinent History GI Medical History: Gallbladder Disease History: No Pertinent History Psycho-Social History: No Pertinent History Female Reproductive Disorders: No Pertinent History - Past Surgical History Past Surgical History: Yes Neuro Surgical History: No Pertinent History Cardiac: No Pertinent History Respiratory: No Pertinent History Gastrointestinal: Cholecystectomy Genitourinary: No Pertinent History Musculoskeletal: No Pertinent History Female Surgical History: No Pertinent History - Social History Smoking Status: Never smoker How long have you smoked: 4 yrs Exposure to second hand smoke: No Drug Use: none Patient Lives Alone: No - Physical Exam General Appearance: mild distress, alert Eye Exam: bilateral eye: normal inspection, PERRL, EOMI Nasal Exam: normal inspection Throat Exam: pharynx normal, dental tenderness (Left mandibular first molar fractured and adjacent abscess noted), moist mucus membranes, No tonsillar exudate Neck Exam: non-tender, supple Cardiovascular/Respiratory Exam: normal breath sounds, no respiratory distress Neurologic Exam: alert, oriented x 3, No motor deficits Skin Exam: normal color, warm, dry SpO2 Interpretation: normal O2 Delivery: Room Air - Course Nursing assessment & vital signs reviewed: Yes - Progress Progress: unchanged - Departure Departure Disposition: Home Clinical Impression: Dental abscess Condition: Stable Critical Care Time: No Referrals: DOCTOR,NO FAMILY [Primary Care Provider] - Follow up/PCP as directed Instructions: Tooth Abscess (DC) Prescriptions: clindamycin HCL [Cleocin HCl] 300 mg PO TID 7 Days #21 cap Diclofenac Sodium 50 mg [Voltaren 50 mg] 50 mg PO Q8H 5 Days #15 tab
== END 2022-03-28 16:32 | disposition home or self-care (01) ==
LOC: ED 15:59
DX: K04.7 Periapical abscess without sinus (principal); R68.84 Jaw pain; Z79.899 Other long term (current) drug therapy
CPT/HCPCS: 99281

== ENCOUNTER 2022-10-10 18:50 | Emergency (ER) | payer OTHER ==
[2022-10-10 19:21] VITALS: BP 123/62; O2SAT 99
[2022-10-10] MEDS ORDERED: Marcaine 0.5%/Epinephrine 10 ML IJ ONE (19:27)
[2022-10-10] MEDS ORDERED: XYLOCAINE 1% HCL 20 ML MDV IJ ONE (19:27)
[2022-10-10] MEDS ORDERED: BUPIVACAINE 0.5% VIAL IJ ONE (19:33)
[2022-10-10] MEDS ORDERED: Sensorcaine 0.25% 10 ML ONE (19:35)
[2022-10-10] MEDS ORDERED: XYLOCAINE 1% HCL 20 ML MDV ONE (19:35)
[2022-10-10] MEDS ORDERED: Sensorcaine 0.25% 10 ML IJ ONE (19:36)
--- NOTE | 2022-10-10 19:37 | ERPHSYRPT ---
- History of Present Illness Time Seen by Provider: 10/10/22 19:15 Source: patient Exam Limitations: no limitations Patient Subjective Stated Complaint: Pt reports she woke up with morning with tooth pain only present when she touches it. Tooth pain reported to be on the b ottom on the left side. Triage Nursing Assessment: Pt alert and oriented x3. No apparent respiratory distress. Skin w/p/d. Ambulated to cot without difficulty. Second to last tooth on left side of mouth on bottom is broken off. Physician History: Patient has a left lower broken tooth for a long time and woke up with swelling to her jaw and pain to her tooth. Patient denies any recent dental work, any recent ENT procedures and any trauma to her head, face or neck area prior to the jaw swelling and tooth pain Timing/Duration: abrupt onset, this morning Severity: moderate ENT Location: dental Prearrival Treatment: no prearrival treatment Modifying Factors: Improves With: nothing Associated Symptoms: facial pain/swelling, tooth pain, No ear pain (R), No ear pain (L), No cough, No fever, No chills, No change in hearing, No dizziness, No drooling, No ear drainage, No headache, No hearing loss, No jaw pain, No motion sickness, No nasal congestion/drainage, No epistaxis, No nasal foreign body, No poor fluid intake, No poor solids intake, No ringing of ears, No swollen glands, No sinus infection, No sore throat, No difficulty swallowing, No voice change Allergies/Adverse Reactions: No Known Drug Allergies Allergy (Verified 10/10/22 19:13) Home Medications: Dextroamphetamine/Amphetamine [Adderall Xr 20 mg Capsule] 20 mg PO BID 03/28/22 [History] Hx Tetanus, Diphtheria Vaccination/Date Given: No Hx Influenza Vaccination/Date Given: No Hx Pneumococcal Vaccination/Date Given: No Immunizations Up to Date: No Travel Risk - International Travel Have you traveled outside of the country in past 3 weeks: No - Coronavirus Screening Are you exhibiting any of the following symptoms?: No Close contact with a COVID-19 positive Pt in past 14-21 Days: No - Vaccine Status Have you recieved a Covid-19 vaccination: No - Review of Systems Constitutional: No Fever, No Chills Eyes: No Symptoms, No Eye Pain, No Eye Redness, No Photophobia, No Tearing, No Double Vision Ears, Nose, & Throat: No Ear Pain, No Ear Discharge, No Nose Pain, No Nose Congestion, No Nose Discharge, No Sinus Drainage, No Epistaxis, No Mouth Pain, No Mouth Swelling, No Loose Teeth, No Throat Pain, No Throat Swelling, No Painful Swallowing Respiratory: No Cough, No Dyspnea Cardiac: No Chest Pain, No Edema, No Syncope Abdominal/Gastrointestinal: No Abdominal Pain, No Nausea, No Vomiting, No Diarrhea Genitourinary Symptoms: No Dysuria Musculoskeletal: No Back Pain, No Neck Pain Skin: No Rash Neurological: No Dizziness, No Focal Weakness, No Sensory Changes Psychological: No Symptoms Endocrine: No Symptoms All Other Systems: Reviewed and Negative - Past Medical History Pertinent Past Medical History: Yes Neurological History: No Pertinent History ENT History: No Pertinent History Cardiac History: No Pertinent History Respiratory History: No Pertinent History Endocrine Medical History: No Pertinent History Musculoskeletal History: No Pertinent History GI Medical History: Gallbladder Disease History: No Pertinent History Psycho-Social History: No Pertinent History Female Reproductive Disorders: No Pertinent History - Past Surgical History Past Surgical History: Yes Neuro Surgical History: No Pertinent History Cardiac: No Pertinent History Respiratory: No Pertinent History Gastrointestinal: Cholecystectomy Genitourinary: No Pertinent History Musculoskeletal: No Pertinent History Female Surgical History: No Pertinent History - Social History Smoking Status: Never smoker How long have you smoked: 4 yrs Exposure to second hand smoke: No Drug Use: none Patient Lives Alone: No - Female History Hx Last Menstrual Period: 10/03/22 Hx Now: No - Nursing Vital Signs Nursing Vital Signs: Initial Vital Signs Temperature 98.1 F 10/10/22 19:14 Pulse Rate 83 10/10/22 19:14 Respiratory Rate 17 10/10/22 19:14 Blood Pressure 123/62 10/10/22 19:14 O2 Sat by Pulse Oximetry 99 10/10/22 19:14 Pain Scale Pain Intensity 0 - Physical Exam General Appearance: no apparent distress, alert Eye Exam: bilateral eye: normal inspection, PERRL, EOMI Ear Exam: bilateral ear: auricle normal, canal normal, TM normal Nasal Exam: normal inspection Throat Exam: pharynx normal, dental tenderness (tooth number 18), mandibular swelling (left side only), moist mucus membranes, No excessive drooling, No maxillary swelling, No pharynx swelling, No pharynx tenderness, No tongue swollen, No tonsillar exudate, No tonsillar swelling, No trismus, No uvula swelling, No voice changes Neck Exam: non-tender, supple, full range of motion, trachea midline, No JVD, No lymphadenopathy (R), No lymphadenopathy (L), No stiff neck, No Brudzinski's sign Cardiovascular/Respiratory Exam: normal breath sounds, regular rate/rhythm, no JVD Abdominal Exam: non-tender, soft, No guarding, No tenderness Neurologic Exam: alert, oriented x 3, information security consultant II-XII nml as tested, normal mood/affect, sensation nml, No motor deficits, No facial droop Skin Exam: normal color, warm, dry SpO2 Interpretation: normal SpO2: 99 O2 Delivery: Room Air Procedures - Nerve Block Time of Procedure: 19:36 Anesthesia: 1% Lidocaine (3ml with 2ml of 0.5% bupivicaine) Volume Anesthetic (ccs): 5 Complications: none Progress: using landmarks, left inferior alveolar nerve block performed using 3 ml of 1% Lidocaine and 2ml of 0.5% bupivicaine. Patient tolerated the procedure well with relief of her pain and no complications Ordered Tests: Medication Summary Discontinued Medications Generic Name Dose Route Start Last Admin Trade Name Freq PRN Reason Stop Dose Admin Amoxicillin/Clavulanate Potassium 875 mg 10/10/22 19:49 Amox Tr/Potassium Clavulanate 875 Mg Tablet PO 10/10/22 19:50 STAT ONE Bupivacaine HCl 2 mg 10/10/22 19:33 10/10/22 19:36 Bupivacaine Hcl/Pf 50 Mg/10 Ml Vial IJ 10/10/22 19:34 Not Given STAT ONE Bupivacaine HCl Confirm 10/10/22 19:35 Bupivacaine Hcl 2.5 Mg/Ml 10 Ml Administered 10/10/22 19:36 Dose 10 ml .ROUTE .STK-MED ONE Bupivacaine HCl 2 ml 10/10/22 19:36 10/10/22 19:37 Bupivacaine Hcl 2.5 Mg/Ml 10 Ml IJ 10/10/22 19:37 2 ml STAT ONE Administration Bupivacaine HCl/Epinephrine Bitart 2 ml 10/10/22 19:27 10/10/22 19:28 Bupivacaine Hcl/Epinephrine 10 Ml Vial IJ 10/10/22 19:28 Not Given STAT ONE Ibuprofen 600 mg 10/10/22 19:49 Ibuprofen 600 Mg Tablet PO 10/10/22 19:50 STAT ONE Lidocaine HCl 3 ml 10/10/22 19:27 10/10/22 19:38 Lidocaine Hcl 1% 20 Ml Mdv 20 Ml Ml IJ 10/10/22 19:28 3 ml STAT ONE Administration Lidocaine HCl Confirm 10/10/22 19:35 Lidocaine Hcl 1% 20 Ml Mdv 20 Ml Ml Administered 10/10/22 19:36 Dose 3 ml .ROUTE .K-MED ONE - Progress Progress: improved Progress Note: 10/10/22 19:54 patient has resolution of her pain. We gave one dose of Augmentin as well as Ibuprofen prior to discharge and other prescriptions will be sent to pharmacy 10/10/22 19:58 Patient has a broken tooth in the left lower dentition that has been present for one year that caused her to have swelling and pain to the left side of her jaw and face since the morning of 10/10/2022. Patient had no other concerning findings on ROS and physical examination, and after informed consent was obtained, patient had a right inferior alveolar nerve block performed which resolved her pain. Patient will be discharged with Augmentin 875 for one week as well as Lodine for pain control. Patient is to follow-up with dentist of choice in the next 3 days and she is to return back to the nearest emergency department if she has any trismus, odynophagia, fever, new skin rash, difficulty controlling, new fever or any other concerning signs or symptoms that were not present at today's emergency department visit for immediate re-evaluation at the nearest emergency department Counseled pt/family regarding: diagnosis, need for follow-up Medical Desision Making - Risk of complications The pt has a mod risk of morbidity or mortality based on: Need for prescription drug management, Need for minor surgical intervention in patient with know risk factors - Departure Departure Disposition: Home Clinical Impression: Dental abscess, Enamel defect of tooth Condition: Good Critical Care Time: No Referrals: DOCTOR,NO FAMILY [Primary Care Provider] - Follow up/PCP as directed Instructions: Dental Pain (DC), Tooth Decay, Adult (DC), Tooth Abscess (DC) Additional Instructions: Follow-up with dentist of choice as soon as you can to continue evaluation and definitive management of your broken tooth and determine if you need any surgical intervention for the dental abscess Prescriptions: Amox Tr/Potass Clav. 875 mg [Augmentin 875-125 Tablet] 1 each PO BID #14 tablet Etodolac 400 mg [Lodine 400 mg] 400 mg PO BID PRN PRN #20 tablet PRN Reason: Pain
[2022-10-10] MEDS ORDERED: Augmentin 875-125 Tablet PO ONE (19:49)
[2022-10-10] MEDS ORDERED: MOTRIN 600 MG PO ONE (19:49)
[2022-10-10] MEDS ORDERED: MOTRIN 600 MG ONE (19:52)
[2022-10-10] MEDS ORDERED: Augmentin 875-125 Tablet ONE (19:52)
[2022-10-10 19:58] VITALS: PULSE 86
== END 2022-10-10 20:06 | disposition home or self-care (01) ==
LOC: ED 18:50
DX: K04.7 Periapical abscess without sinus (principal); K08.89 Other specified disorders of teeth and supporting structures; Z79.899 Other long term (current) drug therapy; Z28.310 Unvaccinated for COVID-19
CPT/HCPCS: 64400; 96372; 99283; A9270-GY

== ENCOUNTER 2022-12-19 08:15 | Emergency (ER) | payer OTHER ==
[2022-12-19 08:34] VITALS: BP 107/66
[2022-12-19] MEDS ORDERED: TORAdol 30 mg Injection IM ONE (09:01)
[2022-12-19] MEDS ORDERED: TORAdol 30 mg Injection ONE (09:03)
--- NOTE | 2022-12-19 09:04 | ERPHSYRPT ---
- History of Present Illness Time Seen by Provider: 12/19/22 08:20 Source: patient Exam Limitations: no limitations Patient Subjective Stated Complaint: pt here for lower left jaw pain, has a fractured tooth to left jaw. no fever Triage Nursing Assessment: pt alert, resp easy, skin w/d/p. has swelling to left side of jaw Physician History: 27 years old female presented to the ER with chief complaint of left lower jaw pain and swelling started gradually yesterday. Patient does have a broken tooth in the area with caries. Moderate intensity sharp pain, more with movements of the jaw. Patient does have appointment with dentist in early January. No fever or chills reported. Timing/Duration: abrupt onset Severity: moderate ENT Location: dental Prearrival Treatment: over the counter meds Associated Symptoms: facial pain/swelling, tooth pain Allergies/Adverse Reactions: No Known Drug Allergies Allergy (Verified 12/19/22 08:26) Home Medications: Dextroamphetamine/Amphetamine [Adderall Xr 20 mg Capsule] 20 mg PO BID 03/28/22 [History] Hx Tetanus, Diphtheria Vaccination/Date Given: No Hx Influenza Vaccination/Date Given: No Hx Pneumococcal Vaccination/Date Given: No Travel Risk - International Travel Have you traveled outside of the country in past 3 weeks: No - Coronavirus Screening Are you exhibiting any of the following symptoms?: No Close contact with a COVID-19 positive Pt in past 14-21 Days: No - Vaccine Status Have you recieved a Covid-19 vaccination: No - Review of Systems Constitutional: No Symptoms Eyes: No Symptoms Ears, Nose, & Throat: Mouth Pain Respiratory: No Symptoms Cardiac: No Symptoms Abdominal/Gastrointestinal: No Symptoms Genitourinary Symptoms: No Symptoms Musculoskeletal: No Symptoms Skin: No Symptoms Neurological: No Symptoms Psychological: No Symptoms Endocrine: No Symptoms - Past Medical History Pertinent Past Medical History: Yes Neurological History: No Pertinent History ENT History: No Pertinent History Cardiac History: No Pertinent History Respiratory History: No Pertinent History Endocrine Medical History: No Pertinent History Musculoskeletal History: No Pertinent History GI Medical History: Gallbladder Disease History: No Pertinent History Psycho-Social History: No Pertinent History Female Reproductive Disorders: No Pertinent History - Past Surgical History Past Surgical History: Yes Neuro Surgical History: No Pertinent History Cardiac: No Pertinent History Respiratory: No Pertinent History Gastrointestinal: Cholecystectomy Genitourinary: No Pertinent History Musculoskeletal: No Pertinent History Female Surgical History: No Pertinent History - Social History Smoking Status: Never smoker How long have you smoked: 4 yrs Exposure to second hand smoke: No Drug Use: none Patient Lives Alone: No - Female History Hx Last Menstrual Period: december 09 Hx Now: No - Nursing Vital Signs Nursing Vital Signs: Initial Vital Signs Temperature 97.4 F 12/19/22 08:31 Pulse Rate 82 12/19/22 08:31 Respiratory Rate 18 12/19/22 08:31 Blood Pressure 107/66 12/19/22 08:31 O2 Sat by Pulse Oximetry 96 12/19/22 08:31 Pain Scale Pain Intensity 0 - Physical Exam General Appearance: no apparent distress, alert Eye Exam: bilateral eye: normal inspection, PERRL, EOMI Ear Exam: bilateral ear: auricle normal, canal normal, TM normal Nasal Exam: normal inspection Throat Exam: normal, pharynx normal, dental tenderness (left lower molar area, tenderness but no fluctuation.) Neck Exam: normal inspection, supple, full range of motion Cardiovascular/Respiratory Exam: normal breath sounds, regular rate/rhythm Neurologic Exam: alert, oriented x 3, cooperative Skin Exam: normal color SpO2 Interpretation: normal SpO2: 96 O2 Delivery: Room Air Ordered Tests: Medication Summary Discontinued Medications Generic Name Dose Route Start Last Admin Trade Name Freq PRN Reason Stop Dose Admin Ketorolac Tromethamine 30 mg 12/19/22 09:01 12/19/22 09:04 Ketorolac Tromethamine 30 Mg/Ml Inj IM 12/19/22 09:02 30 mg STAT ONE Administration Ketorolac Tromethamine Confirm 12/19/22 09:03 Ketorolac Tromethamine 30 Mg/Ml Inj Administered 12/19/22 09:04 Dose 30 mg .ROUTE .STK-MED ONE - Progress Progress: improved Progress Note: 12/19/22 09:42 27 years old is evaluated for dental pain and swelling of left lower jaw. Patient does not have obvious zhang abscess. I will treat with antibiotics and pain medications. She is given Toradol in here for symptomatic relief and started on Augmentin. Recommended outpatient dental follow-up. Discussed signs symptoms of worsening needing return to ER which she seems understanding. Counseled pt/family regarding: diagnosis, need for follow-up Medical Desision Making - Discussion of managment Agreed on:: Treatment plan, need for follow-up - Risk of complications The pt has a mod risk of morbidity or mortality based on: Need for prescription drug management - Departure Departure Disposition: Home Clinical Impression: Dental infection Condition: Stable Critical Care Time: No Referrals: DOCTOR,NO FAMILY [Primary Care Provider] - Follow up/PCP as directed YOSSI MOSLEY DDS [NON-STAFF PHY W/O PRIVILEGES] - Follow up/PCP as directed (call today for appointment ) Instructions: Tooth Abscess (DC) Additional Instructions: Take Tylenol/ibuprofen as needed for pain. Follow-up with dentist for reevaluation. Return to ER for worsening pain/swelling/fever chills etc. Prescriptions: Ibuprofen 600 mg PO Q6HPRN PRN 10 Days #20 tablet PRN Reason: Pain Amox Tr/Potass Clav. 875 mg [Augmentin 875-125 Tablet] 875 mg PO BID #14 tablet
[2022-12-19 09:49] VITALS: PULSE 98
[2022-12-19 10:06] VITALS: O2SAT 96
== END 2022-12-19 09:48 | disposition home or self-care (01) ==
LOC: ED 08:15
DX: K04.7 Periapical abscess without sinus (principal); R68.84 Jaw pain; Z79.899 Other long term (current) drug therapy; Z28.310 Unvaccinated for COVID-19
CPT/HCPCS: 96372; 99282; J1885

== ENCOUNTER 2023-07-01 07:37 | Emergency (ER) | payer OTHER ==
--- NOTE | 2023-07-01 07:44 | ERPHSYRPT ---
- History of Present Illness Time Seen by Provider: 07/01/23 07:43 Historian: patient Exam Limitations: no limitations Physician History: This is a 27-year-old white female patient who states she is approximately 7 weeks and has been vomiting since 3 AM on 06/30/2023. Patient has some muscular pain in the right side of her abdomen. She feels that it is secondary to vomiting multiple times. She came into the emergency department because she is concerned about her electrolytes and whether or not she may be dehydrated. She sees Dr. Hidalgo in 2 days for obstetrics evaluation and management. Patient has not had any vaginal bleeding. She has not had any syncopal episodes. She has no chest pain. She is not short of breath. He has had no diarrhea. She has not had a fever. Timing/Duration: yesterday Activities at Onset: none Abdominal Pain Onset Location: other (Mild right side abdominal pain with bending twisting.) Pain Radiation: no radiation Severity of Pain-Max: mild Severity of Pain-Current: mild Modifying Factors: Improves With: vomiting Associated Symptoms: loss of appetite, nausea, vomiting, weakness, No chest pain, No fever/chills Previous symptoms: no prior history, no recent treatment Allergies/Adverse Reactions: No Known Drug Allergies Allergy (Verified 07/01/23 07:47) Hx Tetanus, Diphtheria Vaccination/Date Given: No Hx Influenza Vaccination/Date Given: No Hx Pneumococcal Vaccination/Date Given: No Travel Risk - International Travel Have you traveled outside of the country in past 3 weeks: No - Coronavirus Screening Are you exhibiting any of the following symptoms?: Yes Close contact with a COVID-19 positive Pt in past 14-21 Days: No - Vaccine Status Have you recieved a Covid-19 vaccination: No - Review of Systems Constitutional: No Symptoms, Weakness Eyes: No Symptoms Ears, Nose, & Throat: No Symptoms Respiratory: No Symptoms Cardiac: No Symptoms Abdominal/Gastrointestinal: Abdominal Pain (Mild right side), Nausea, Vomiting, Appetite Changes Genitourinary Symptoms: No Symptoms Musculoskeletal: No Symptoms Skin: No Symptoms Neurological: No Symptoms Psychological: No Symptoms Endocrine: No Symptoms Hematologic/Lymphatic: No Symptoms Immunological/Allergic: No Symptoms - Past Medical History Pertinent Past Medical History: Yes Neurological History: No Pertinent History ENT History: No Pertinent History Cardiac History: No Pertinent History Respiratory History: No Pertinent History Endocrine Medical History: No Pertinent History Musculoskeletal History: No Pertinent History GI Medical History: Gallbladder Disease History: No Pertinent History Psycho-Social History: No Pertinent History Female Reproductive Disorders: No Pertinent History - Past Surgical History Past Surgical History: Yes Neuro Surgical History: No Pertinent History Cardiac: No Pertinent History Respiratory: No Pertinent History Gastrointestinal: Cholecystectomy Genitourinary: No Pertinent History Musculoskeletal: No Pertinent History Female Surgical History: No Pertinent History - Social History Smoking Status: Never smoker How long have you smoked: 4 yrs Exposure to second hand smoke: No Drug Use: none Patient Lives Alone: No - Nursing Vital Signs Nursing Vital Signs: Initial Vital Signs Temperature 97.6 F 07/01/23 07:38 Pulse Rate 73 07/01/23 07:38 Respiratory Rate 15 07/01/23 07:38 Blood Pressure 92/69 07/01/23 07:38 O2 Sat by Pulse Oximetry 98 07/01/23 07:38 Pain Scale Pain Intensity 3 - Physical Exam General Appearance: no apparent distress, alert Eye Exam: PERRL/EOMI, eyes nml inspection Ears, Nose, Throat Exam: normal ENT inspection, moist mucous membranes Neck Exam: normal inspection, non-tender, supple, full range of motion Respiratory Exam: normal breath sounds, lungs clear, airway intact, No chest tenderness, No respiratory distress Cardiovascular Exam: regular rate/rhythm, normal heart sounds, normal peripheral pulses Gastrointestinal/Abdomen Exam: soft, normal bowel sounds, tenderness (Mild to palpation in the distribution of the rectus muscle), No guarding, No rebound Pelvic Exam: not done Rectal Exam: not done Back Exam: normal inspection, normal range of motion, No CVA tenderness, No vertebral tenderness Extremity Exam: normal inspection, normal range of motion, pelvis stable Neurologic Exam: alert, oriented x 3, cooperative, 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, normal mood/affect, nml cerebellar function, nml station & gait, sensation nml Skin Exam: normal color, warm, dry Lymphatic Exam: No adenopathy SpO2 Interpretation: normal O2 Delivery: Room Air - Course Nursing assessment & vital signs reviewed: Yes Ordered Tests: Active Orders 24 hr Category Date Time Status IV Insertion STAT Care 07/01/23 08:04 Active AMYLASE Stat Lab 07/01/23 08:20 Completed CBC W DIFF Stat Lab 07/01/23 08:20 Completed CMP Stat Lab 07/01/23 08:20 Completed CULTURE,URINE Stat Lab 07/01/23 08:12 Received LIPASE Stat Lab 07/01/23 08:20 Completed UA W/RFX UR CULTURE Stat Lab 07/01/23 08:12 Completed Medication Summary Generic Name Dose Route Start Last Admin Trade Name Regan PRN Reason Stop Dose Admin Sodium Chloride 1,000 mls @ 999 mls/hr 07/01/23 09:12 07/01/23 09:30 Sodium Chloride 0.9% 1000 Ml IV 07/01/23 10:12 999 mls/hr .Q1H1M STA Administration Discontinued Medications Generic Name Dose Route Start Last Admin Trade Name Regan PRN Reason Stop Dose Admin Sodium Chloride 1,000 mls @ 999 mls/hr 07/01/23 08:04 07/01/23 08:23 Sodium Chloride 0.9% 1000 Ml IV 07/01/23 09:04 999 mls/hr .Q1H1M STA Administration Sodium Chloride Confirm 07/01/23 08:22 Sodium Chloride 0.9% 1000 Ml Administered 07/01/23 08:23 Dose 1,000 mls @ ud .ROUTE .STK-MED ONE Ceftriaxone Sodium/Dextrose 1 g in 50 mls @ 100 mls/hr 07/01/23 09:12 07/01/23 09:30 Rocephin 1 Gm-D5w 50 Ml Bag IV 07/01/23 09:41 100 mls/hr STAT STA 100 mls/hr Administration Sodium Chloride Confirm 07/01/23 09:29 Sodium Chloride 0.9% 1000 Ml Administered 07/01/23 09:30 Dose 1,000 mls @ ud .ROUTE .STK-MED ONE Ceftriaxone Sodium/Dextrose Confirm 07/01/23 09:29 Rocephin 1 Gm-D5w 50 Ml Bag Administered 07/01/23 09:30 Dose 1 g in 50 mls @ ud IV .STK-MED ONE Ondansetron HCl 4 mg 07/01/23 08:04 07/01/23 08:23 Ondansetron Hcl 4 Mg/2 Ml Vial IV 07/01/23 08:05 4 mg STAT ONE Administration Ondansetron HCl Confirm 07/01/23 08:22 Ondansetron Hcl 4 Mg/2 Ml Vial Administered 07/01/23 08:23 Dose 4 mg .ROUTE .STK-MED ONE Lab/Rad Data: Laboratory Result Diagrams 07/01/23 08:20 07/01/23 08:20 Laboratory Results 07/01/23 07/01/23 07/01/23 Range/Units 08:20 08:20 08:12 WBC 6.5 (4.0-10.5) x10^3/uL RBC 4.02 L (4.1-5.4) x10^6/uL Hgb 12.0 (12.0-16.0) g/dL Hct 36.6 (35-47) % MCV 91.0 (78-100) fL MCH 29.9 (26-32) pg MCHC 32.8 (32-36) g/dL RDW 12.6 (11.5-14.0) % Plt Count 236 (150-450) x10^3/uL MPV 9.2 (7.5-11.0) fL Gran % 72.8 H (36.0-66.0) % Immature Gran % (Auto) 0.5 H (0.00-0.4) % Nucleat RBC Rel Count 0.0 (0.00-0.1) % Eos # (Auto) 0.03 (0-0.5) x10^3/uL Immature Gran # (Auto) 0.03 (0.00-0.03) x10^3u/L Absolute Lymphs (auto) 1.31 (1.0-4.6) x10^3/uL Absolute Monos (auto) 0.36 (0.0-1.3) x10^3/uL Absolute Nucleated RBC 0.00 (0.00-0.01) x10^3u/L Lymphocytes % 20.3 L (24.0-44.0) % Monocytes % 5.6 (0.0-12.0) % Eosinophils % 0.5 (0.00-5.0) % Basophils % 0.3 (0.0-0.4) % Absolute Granulocytes 4.70 (1.4-6.9) x10^3/uL Basophils # 0.02 (0-0.4) x10^3/uL Sodium 135 L (137-145) mmol/L Potassium 3.6 (3.5-5.1) mmol/L Chloride 104 (98-107) mmol/L Carbon Dioxide 20 L (22-30) mmol/L Anion Gap 14.8 (5-15) MEQ/L BUN 8 (7-17) mg/dL Creatinine 0.44 L (0.52-1.04) mg/dL Estimated GFR 135.0 ML/MIN Glucose 95 (74-106) mg/dL Calcium 9.3 (8.4-10.2) mg/dL Total Bilirubin 1.00 (0.2-1.3) mg/dL AST 18 (14-36) U/L ALT 17 (0-35) U/L Alkaline Phosphatase 57 (38-126) U/L Serum Total Protein 7.3 (6.3-8.2) g/dL Albumin 4.4 (3.5-5.0) g/dL Amylase 59 (30-110) U/L Lipase 34 (23-300) U/L Urine Color Yellow (Yellow) Urine Appearance Cloudy A (Clear) Urine pH 5.5 (4.6-8.0) Ur Specific [place] 1.020 (1.005-1.030) Urine Protein Negative (Negative) Urine Glucose (UA) Negative (Negative) mg/dL Urine Ketones 80 A (Negative) Urine Blood Negative (Negative) Urine Nitrite Positive A (Negative) Urine Bilirubin Negative (Negative) Urine Urobilinogen 0.2 (0.2) mg/dL Ur Leukocyte Esterase Negative (Negative) U Hyaline Cast (Auto) NONE SEEN (0-2) /LPF Urine Microscopic RBC 0-2 (0-5) /HPF Urine Microscopic WBC 3-5 (0-5) /HPF Ur Epithelial Cells Moderate A (None Seen) /HPF Urine Bacteria Many A (None Seen) /HPF Urine Culture Reflexed YES (NO) - Progress Progress: improved, re-examined Progress Note: 07/01/23 08:45 This patient's medical issue is 1 of moderate complexity. Level complex in the work-up performed is based on review of the patient's past medical history, review the patient's medication list, review of the patient drug allergy list, history of present illness and physical findings on examination. The work-up in this patient includes placement of intravenous line, infusion normal saline solution, infusion of Zofran intravenously, CBC, CMP, amylase, lipase, urinalysis. 07/01/23 09:42 I reviewed and interpreted the laboratory work-up in this patient. This patient has dehydration and urinary tract infection in . We will provide her with additional liter of fluid and patient will receive Rocephin 1 g intravenously. Counseled pt/family regarding: lab results, diagnosis, need for follow-up Medical Desision Making - Diagnostic Testing Diagnostic test were ordered, analyzed, and reviewed by me: Yes - Risk of complications The pt has a mod risk of morbidity or mortality based on: Need for prescription drug management - Departure Departure Disposition: Home Clinical Impression: UTI (urinary tract infection) during , Dehydration Condition: Stable Critical Care Time: No Referrals: DOCTOR,NO FAMILY [Primary Care Provider] - Follow up/PCP as directed Additional Instructions: Drink plenty of clear liquids before advancing your diet. Take your antibiotics as prescribed. Keep your appointment with Dr. Hidalgo on 07/03/2023. Prescriptions: Ondansetron ODT 4 MG [Zofran Odt 4 mg] 4 mg PO Q6H PRN PRN #10 tablet PRN Reason: Vomiting Cephalexin Mh 500 mg [Keflex 500 mg] 500 mg PO TID #21 cap
[2023-07-01 07:57] VITALS: TEMP 97.6
[2023-07-01] MEDS ORDERED: Sodium Chloride 0.9% 1000 ML 1,000 ML IV STA ×2 (08:04→09:12)
[2023-07-01] MEDS ORDERED: Zofran 4 MG/2 ML VIAL IV ONE (08:04)
[2023-07-01 08:21] LABS: Appearance Cloudy (Clear); Bilirubin Negative (Negative); Blood Negative (Negative); Glucose, Urine Negative (Negative); Ketones 80 (Negative); Leukocyte Esterase Negative (Negative); Nitrite Positive (Negative); Ph 5.5 (4.6-8.0); Protein,Urine Dip Negative (Negative); Urobilinogen 0.2 mg/dL (0.2)
[2023-07-01] MEDS ORDERED: Zofran 4 MG/2 ML VIAL ONE (08:22)
[2023-07-01] MEDS ORDERED: Sodium Chloride 0.9% 1000 ML 1,000 ML ONE ×2 (08:22→09:29)
[2023-07-01 08:23] LABS: BASOPHIL % 0.3 % (0.0-0.4); Basophil (Absolute #) 0.02 x10^3/uL (0-0.4); Eosinophil % 0.5 % (0.00-5.0); Eosinophil (Absolute #) 0.03 x10^3/uL (0-0.5); Hematocrit 36.6 % (35-47); IMMATURE GRAN # 0.03 x10^3u/L (0.00-0.03); IMMATURE GRAN % 0.5 % (0.00-0.4); Lymphocyte (Absolute #) 1.31 x10^3/uL (1.0-4.6); Lymphocytes % 20.3 % (24.0-44.0); Mean Corpuscular Hemoglobin 29.9 pg (26-32); Mean Corpuscular Hgb Concent. 32.8 g/dL (32-36); Mean Platelet Volume 9.2 fL (7.5-11.0); Monocyte (Absolute #) 0.36 x10^3/uL (0.0-1.3); Monocytes % 5.6 % (0.0-12.0); Neutrophil % 72.8 % (36.0-66.0); Platelet Count 236 x10^3/uL (150-450); Red Blood Count 4.02 x10^6/uL (4.1-5.4); Red Cell Distribution Width 12.6 % (11.5-14.0); White Blood Count 6.5 x10^3/uL (4.0-10.5)
[2023-07-01 08:32] LABS: Bacteria Many /HPF (None Seen); Epithelial Cells Moderate /HPF (None Seen); Hyaline Casts NONE SEEN /LPF (0-2); RBC 0-2 /HPF (0-5)
[2023-07-01 08:36] LABS: ADD URINE CULTURE? YES (NO)
[2023-07-01 08:39] LABS: ALBUMIN 4.4 g/dL (3.5-5.0); ANION GAP 14.8 MEQ/L (5-15); Calcium 9.3 mg/dL (8.4-10.2); Creatinine 1 0.44 mg/dL (0.52-1.04); Potassium 3.6 mmol/L (3.5-5.1); Total Protein 7.3 g/dL (6.3-8.2)
[2023-07-01] MEDS ORDERED: ROCEPHIN 1 Gm-D5w 50 ml Bag** 1 G/50 ML IVPB IV STA (09:12)
[2023-07-01] MEDS ORDERED: ROCEPHIN 1 Gm-D5w 50 ml Bag** 1 G/50 ML IVPB IV ONE (09:29)
[2023-07-01 10:44] VITALS: BP 89/56; PULSE 61; RESP 16; O2SAT 98
== END 2023-07-01 11:00 | disposition home or self-care (01) ==
LOC: ED 07:37
DX: O23.41 Unspecified infection of urinary tract in pregnancy, first trimester (principal); N39.0 Urinary tract infection, site not specified; Z3A.01 Less than 8 weeks gestation of pregnancy; E86.0 Dehydration; R11.2 Nausea with vomiting, unspecified; Z28.310 Unvaccinated for COVID-19
CPT/HCPCS: 36000; 36415; 80053; 81001; 82150; 83690; 85025; 87086; 96365; 96374; 99284; J0696; J2405

== ENCOUNTER 2024-02-17 04:51 | Inpatient (IN) | payer OTHER ==
[2024-02-17] MEDS ORDERED: PITOCIN 30 UNITS/ LR 500 ML 30 UNITS/500 ML PLAST..BAG IV SCH (05:00)
[2024-02-17] MEDS ORDERED: Nubain 10 MG/ML IV PRN (05:00)
[2024-02-17] MEDS ORDERED: TYLENOL EXTRA STRENGTH 500 MG PO PRN (05:00)
[2024-02-17] MEDS ORDERED: STADOL 2 MG IV PRN (05:00)
[2024-02-17] MEDS ORDERED: XYLOCAINE 1% HCL 20 ML MDV IJ PRN (05:00)
[2024-02-17 05:26] LABS: BASOPHIL % 0.3 % (0.1-1.2); Basophil (Absolute #) 0.03 x10^3/uL (0.01-0.08); Hematocrit 33.8 % (34.1-44.9); Hemoglobin 10.6 g/dL (11.2-15.7); IMMATURE GRAN # 0.06 x10^3u/L (0.001-0.031); IMMATURE GRAN % 0.6 % (0.001-0.429); Lymphocyte (Absolute #) 2.23 x10^3/uL (1.18-3.74); Mean Cell Volume 81.4 fL (79.4-94.8); Mean Corpuscular Hemoglobin 25.5 pg (25.6-32.2); Mean Corpuscular Hgb Concent. 31.4 g/dL (32.2-35.5); Mean Platelet Volume 9.4 fL (9.4-12.3); Monocyte (Absolute #) 0.56 x10^3/uL (0.24-0.86); Monocytes % 5.8 % (4.7-12.5); Neutrophil % 69.3 % (34.0-71.1); Platelet Count 259 x10^3/uL (182-369); Red Blood Count 4.15 x10^6/uL (3.93-5.22); White Blood Count 9.7 x10^3/uL (3.98-10.04)
[2024-02-17 05:37] LABS: Appearance Cloudy (Clear); Bilirubin Negative (Negative); Blood Negative (Negative); Glucose, Urine Negative (Negative); Ketones Negative (Negative); Leukocyte Esterase Trace (Negative); Nitrite Negative (Negative); Protein,Urine Dip Trace (Negative); Specific Gravity >=1.030 (1.005-1.030)
[2024-02-17 05:44] LABS: Bacteria Few /HPF (None Seen); Epithelial Cells Many /HPF (None Seen); Hyaline Casts NONE SEEN /LPF (0-2); RBC 0-2 /HPF (0-5)
[2024-02-17 05:48] LABS: ADD URINE CULTURE? YES (NO)
[2024-02-17] MEDS: Lactated Ringers 1,000 ML IV SCH (05:48)
[2024-02-17] MEDS: PITOCIN 30 UNITS/ LR 500 ML 30 UNITS/500 ML PLAST..BAG IV SCH (05:48)
[2024-02-17 05:52] LABS: Amphetamine,Urine NEGATIVE (NEGATIVE); Barbiturate,Urine NEGATIVE (NEGATIVE); Benzodiazepine,Urine NEGATIVE (NEGATIVE); Cocaine,Urine NEGATIVE (NEGATIVE); Methadone,Urine NEGATIVE (NEGATIVE); Opiate,Urine NEGATIVE (NEGATIVE); PCP,Urine NEGATIVE (NEGATIVE); THC,Urine NEGATIVE (NEGATIVE)
[2024-02-17 06:08] LABS: ABO TYPING O; Antibody Screen NEGATIVE (NEGATIVE); RH TYPING POSITIVE
[2024-02-17] MEDS: Lactated Ringers 1,000 ML IV ONE (06:45)
[2024-02-17] MEDS ORDERED: Ephedrine Sulfate 50 MG/ML IV PRN (06:45)
[2024-02-17] MEDS: FENTANYL 2 MCG-BUPIV 0.125%-NS 250 ML Epidur 250 ML EPIDURAL SCH (07:18)
[2024-02-17] MEDS: Zofran 4 MG/2 ML VIAL IV PRN (09:55)
[2024-02-17] MEDS ORDERED: Mylicon 80MG PO PRN (14:10)
[2024-02-17] MEDS ORDERED: Anucort-HC SUPPOSITORY PR PRN (14:10)
[2024-02-17] MEDS ORDERED: Dulcolax 10 MG SUPP PR PRN (14:10)
[2024-02-17] MEDS ORDERED: NORCO 5/325 MG PO PRN (14:10)
[2024-02-17] MEDS ORDERED: CORTISONE 1% CREAM TP PRN (14:10)
[2024-02-17] MEDS: TUCKS TP PRN (14:25)
[2024-02-17] MEDS: Dermoplast Spray TP PRN (14:26)
[2024-02-17] MEDS: LANSINOH 40 GM TOP PRN (14:26)
[2024-02-17] MEDS: Adacel Vial IM ONE (20:59)
[2024-02-17] MEDS: Docusate Sodium 100 MG PO SCH (20:59)
[2024-02-17] MEDS: MOTRIN 400 MG PO PRN (23:05)
[2024-02-18] MEDS: TYLENOL EXTRA STRENGTH 500 MG PO PRN (03:09)
[2024-02-18 04:39] LABS: Absolute Neutrophil Ct (ANC) 8.17 x10^3/uL (1.56-6.13); BASOPHIL % 0.3 % (0.1-1.2); Basophil (Absolute #) 0.03 x10^3/uL (0.01-0.08); Eosinophil % 0.8 % (0.7-5.8); Eosinophil (Absolute #) 0.09 x10^3/uL (0.04-0.36); Hemoglobin 9.8 g/dL (11.2-15.7); IMMATURE GRAN % 1.1 % (0.001-0.429); Lymphocytes % 18.8 % (19.3-51.7); Mean Cell Volume 80.8 fL (79.4-94.8); Mean Corpuscular Hemoglobin 24.7 pg (25.6-32.2); Mean Corpuscular Hgb Concent. 30.6 g/dL (32.2-35.5); Mean Platelet Volume 9.8 fL (9.4-12.3); Monocyte (Absolute #) 0.64 x10^3/uL (0.24-0.86); Monocytes % 5.7 % (4.7-12.5); Neutrophil % 73.3 % (34.0-71.1); Platelet Count 256 x10^3/uL (182-369); Red Blood Count 3.96 x10^6/uL (3.93-5.22); White Blood Count 11.2 x10^3/uL (3.98-10.04)
[2024-02-18 04:40] LABS: IMMATURE GRAN # 0.12 x10^3u/L (0.001-0.031)
[2024-02-18 08:18] VITALS: RESP 14
[2024-02-18] MEDS: FERREX 150 PO SCH (10:01)
[2024-02-18 11:11] LABS: RPR Non Reactive (Non Reactive)
--- NOTE | 2024-02-18 11:23 | PCM.DS ---
Discharge Summary Date of Admission: 02/17/24 08:59 Admitting Physician: GUERO KIDD Consults: Consults on Case 02/17/24 06:43 Notify Anesthesia Provider PRN 02/17/24 14:11 Notify Physician ROUTINE 02/17/24 14:43 Navigation ONCE Primary Care Provider: GUERO KIDD Allergies Allergies No Known Drug Allergies Allergy (Verified 02/17/24 05:03) Hospital Summary - Hospital Course Hospital Course: patient had uncomplicated vaginal delivery at 39wks, elective induction. mild lochia, minimal pain and doing great . requesting early discharge. - Vitals & Intake/Output Vital Signs: Vital Signs Temperature 98.1 F 02/18/24 08:00 Pulse Rate 70 02/18/24 08:00 Respiratory Rate 14 02/18/24 08:00 Blood Pressure 108/59 02/18/24 08:00 O2 Sat by Pulse Oximetry 99 02/18/24 08:00 Intake & Output: Intake & Output 02/15/24 02/16/24 02/17/24 02/18/24 11:59 11:59 11:59 11:59 Intake Total 1000 1820 Output Total 1300 Balance 1000 520 Weight 90.718 kg 90.718 kg - Lab Result Diagrams: 02/18/24 04:09 Lab Results-Last 24 Hrs: Lab Results-Last 24 Hours 02/17/24 02/18/24 Range/Units 05:20 04:09 WBC 11.2 H (3.98-10.04) x10^3/uL RBC 3.96 (3.93-5.22) x10^6/uL Hgb 9.8 L (11.2-15.7) g/dL Hct 32.0 L (34.1-44.9) % MCV 80.8 (79.4-94.8) fL MCH 24.7 L (25.6-32.2) pg MCHC 30.6 L (32.2-35.5) g/dL RDW 14.0 (11.7-14.4) % Plt Count 256 (182-369) x10^3/uL MPV 9.8 (9.4-12.3) fL Gran % 73.3 H (34.0-71.1) % Immature Gran % (Auto) 1.1 H (0.001-0.429) % Nucleat RBC Rel Count 0.0 (0.00-0.2) % Eos # (Auto) 0.09 (0.04-0.36) x10^3/uL Immature Gran # (Auto) 0.12 H (0.001-0.031) x10^3u/L Absolute Lymphs (auto) 2.10 (1.18-3.74) x10^3/uL Absolute Monos (auto) 0.64 (0.24-0.86) x10^3/uL Absolute Nucleated RBC 0.00 (0.00-0.012) x10^3u/L Lymphocytes % 18.8 L (19.3-51.7) % Monocytes % 5.7 (4.7-12.5) % Eosinophils % 0.8 (0.7-5.8) % Basophils % 0.3 (0.1-1.2) % Absolute Granulocytes 8.17 H (1.56-6.13) x10^3/uL Basophils # 0.03 (0.01-0.08) x10^3/uL RPR Non Reactive (Non Reactive) Micro Results-Entire Visit: Microbiology 02/17/24 05:42 Urine Culture - Final Urine, Void <10K NORMAL SKIN GORAN PROBABLE SKIN CONTAMINANT - Procedures and Test Procedures and Tests throughout Hospitalization: Therapy Orders & Screens 02/17/24 13:01 Standby ROUTINE Comment: Diagnosis: Pitocin induction of Labor for term Discharge Exam General Appearance: no apparent distress Neurologic Exam: alert, oriented x 3 Respiratory Exam: normal breath sounds, lungs clear, No respiratory distress Cardiovascular Exam: regular rate/rhythm, normal heart sounds Gastrointestinal/Abdomen Exam: soft, other (fundus firm) Extremity Exam: normal inspection, normal range of motion Skin Exam: normal color, warm, dry Final Diagnosis/Problem List - Final Discharge Diagnosis/Problem (1) Vaginal delivery Current Visit: Yes Status: Acute Code(s): O80 - ENCOUNTER FOR FULL-TERM UNCOMPLICATED DELIVERY - Discharge Disposition: Home, Self-Care Condition: Stable Prescriptions: [place] Polysaccharides Complex [Ferrex 150] 150 mg PO DAILY #30 cap Follow up with: GUERO KIDD MD [Primary Care Provider] - 6 weeks
[2024-02-18 16:28] VITALS: BP 106/63; PULSE 72; TEMP 98; O2SAT 96
== END 2024-02-18 16:15 | disposition home or self-care (01) | DRG 807 ==
LOC: OB 04:51 → OBSVTOIN 08:59 → OB 08:59
PROVIDERS: ADMIT Family Medicine; ATTEND Family Medicine
PROC: 10E0XZZ Delivery of Products of Conception, External Approach (ICD-10-PCS; principal; 2024-02-17)
DX: O80 Encounter for full-term uncomplicated delivery (principal); Z37.0 Single live birth; Z3A.39 39 weeks gestation of pregnancy
CPT/HCPCS: 36415; 80307; 81001; 85025; 86592; 86850; 86900; 86901; 87086; 90384; 90715; 94799; J2405; J2590; A9270-GY

== ENCOUNTER 2024-04-07 09:22 | Emergency (ER) | payer OTHER ==
[2024-04-07 09:43] VITALS: O2SAT 98
[2024-04-07] MEDS ORDERED: MAALOX ES 30 ML UNIT DOSE ONE (09:44)
[2024-04-07] MEDS ORDERED: XYLOCAINE VISCOUS 2% 15 ML CUP ONE ×2 (09:44→09:50)
[2024-04-07] MEDS: MAALOX ES 30 ML UNIT DOSE MM ONE (09:49)
[2024-04-07] MEDS: XYLOCAINE VISCOUS 2% 15 ML CUP MM ONE (09:49)
[2024-04-07] MEDS ORDERED: TORAdol 30 mg Injection ONE (09:50)
[2024-04-07] MEDS ORDERED: CETACAINE SPRAY ONE (09:50)
[2024-04-07] MEDS: CETACAINE SPRAY MM ONE (09:51)
[2024-04-07] MEDS: TORAdol 30 mg Injection IM ONE (09:51)
--- NOTE | 2024-04-07 09:52 | ERPHSYRPT ---
- History of Present Illness Time Seen by Provider: 04/07/24 09:34 Source: patient Exam Limitations: no limitations Patient Subjective Stated Complaint: Broken tooth for a year, pain started yesterday. Triage Nursing Assessment: 28 yr old female pt arrives to ED via POV. Pt ambulatory to room 8. Pt presents with complaints of dental pain. Pt has a broken tooth on the bottom left and she is concerned that she may now have an abcess. Pt is rating her pain as a 7. Pt denies being on an atibiotics and also denies fever. No facial swelling noted. Pt is alert, oriented and not in distress. Physician History: 28-year-old female presented in the ER for evaluation of left lower jaw toothache. Patient reports she has a broken tooth and has been having increased pain since yesterday, moderate intensity sharp throbbing with minimal swelling of gingiva. Patient concerned about tooth abscess. Hurts to swallow. Denies any fever or chills. Recent , not breast-feeding. Patient has broken premolar with minimal gingival swelling on the left. Mild tenderness and no fluctuation. She is given Toradol for symptomatic relief along with dental balls for topical anesthesia. Started on Augmentin and recommended outpatient dental follow-up. Discussed signs symptoms of worsening needing return to ER which he seems understanding. Allergies/Adverse Reactions: No Known Drug Allergies Allergy (Verified 04/07/24 09:33) Hx Tetanus, Diphtheria Vaccination/Date Given: Yes Hx Influenza Vaccination/Date Given: Yes Hx Pneumococcal Vaccination/Date Given: No Immunizations Up to Date: Yes Travel Risk - International Travel Have you traveled outside of the country in past 3 weeks: No - Emerging Infectious Disease Are you exhibiting symptoms associated with any current EIDs: No - Review of Systems Constitutional: No Symptoms Eyes: No Symptoms Ears, Nose, & Throat: Mouth Pain, Loose Teeth Respiratory: No Symptoms Cardiac: No Symptoms Abdominal/Gastrointestinal: No Symptoms Musculoskeletal: No Symptoms Neurological: No Symptoms Endocrine: No Symptoms - Past Medical History Pertinent Past Medical History: Yes Neurological History: No Pertinent History ENT History: No Pertinent History Cardiac History: No Pertinent History Respiratory History: No Pertinent History Endocrine Medical History: No Pertinent History Musculoskeletal History: No Pertinent History GI Medical History: No Pertinent History History: No Pertinent History Psycho-Social History: No Pertinent History Female Reproductive Disorders: No Pertinent History Other Medical History: none - Past Surgical History Past Surgical History: Yes Neuro Surgical History: No Pertinent History Cardiac: No Pertinent History Respiratory: No Pertinent History Gastrointestinal: Cholecystectomy Genitourinary: No Pertinent History Musculoskeletal: No Pertinent History Female Surgical History: No Pertinent History - Female History Hx Last Menstrual Period: AUG 03 Hx Now: No - Social History Smoking Status: Never smoker How long have you smoked: 4 yrs Exposure to second hand smoke: No Drug Use: none Patient Lives Alone: No - Social Determinants of Health Will the patient participate in the screening: Yes Do you worry about a steady place to live?: No Do you have any problems with any of the following?: No known problems In the past 12 months,have you had to go without utilities?: No Transportation Issues: No Has anyone in your support network made you feel unsafe?: No Have you or anyone in your house had to go without enough: No - Nursing Vital Signs Nursing Vital Signs: Initial Vital Signs Pulse Rate 67 04/07/24 09:23 Respiratory Rate 16 04/07/24 09:23 Blood Pressure 130/80 04/07/24 09:23 O2 Sat by Pulse Oximetry 97 04/07/24 09:23 Pain Scale Pain Intensity 7 - Physical Exam General Appearance: no apparent distress Eye Exam: bilateral eye: normal inspection, PERRL, EOMI Ear Exam: bilateral ear: auricle normal, canal normal, TM normal Nasal Exam: normal inspection Throat Exam: normal, pharynx normal, dental tenderness (Left lower premolar) Neck Exam: normal inspection, non-tender, supple, full range of motion Cardiovascular/Respiratory Exam: chest non-tender, regular rate/rhythm Neurologic Exam: alert, oriented x 3, cooperative, 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 Skin Exam: normal color SpO2 Interpretation: normal SpO2: 98 O2 Delivery: Room Air Ordered Tests: Medication Summary Discontinued Medications Generic Name Dose Route Start Last Admin Trade Name Freq PRN Reason Stop Dose Admin Al Hydrox/Mg Hydrox/Simethicone 30 ml 04/07/24 09:44 04/07/24 09:49 Mag Hydrox/Al Hydrox/Simeth 30 Ml Udcup MM 04/07/24 09:45 30 ml STAT ONE Administration Al Hydrox/Mg Hydrox/Simethicone Confirm 04/07/24 09:44 Mag Hydrox/Al Hydrox/Simeth 30 Ml Udcup Administered 04/07/24 09:45 Dose 30 ml .ROUTE .STK-MED ONE Benzocaine/Butamben/Tetracaine HCl 5 spray 04/07/24 09:44 04/07/24 09:51 Tetracaine/Benzocaine/Butamben 1 Rhodes MM 04/07/24 09:45 5 spray ONCE ONE Administration Ketorolac Tromethamine 30 mg 04/07/24 09:43 04/07/24 09:51 Ketorolac Tromethamine 30 Mg/Ml Inj IM 04/07/24 09:44 30 mg STAT ONE Administration Lidocaine HCl 30 ml 04/07/24 09:44 04/07/24 09:49 Lidocaine Hcl 2% Viscous 15 Ml Udcup MM 04/07/24 09:45 30 ml STAT ONE Administration Lidocaine HCl Confirm 04/07/24 09:44 Lidocaine Hcl 2% Viscous 15 Ml Udcup Administered 04/07/24 09:45 Dose 15 ml .ROUTE .STK-MED ONE - Progress Progress Note: 04/07/24 09:51 28-year-old female presented in the ER for evaluation of left lower jaw toothache. Patient reports she has a broken tooth and has been having increased pain since yesterday, moderate intensity sharp throbbing with minimal swelling of gingiva. Patient concerned about tooth abscess. Hurts to swallow. Denies any fever or chills. Patient has broken premolar with minimal gingival swelling on the left. Mild tenderness and no fluctuation. She is given Toradol for symptomatic relief along with dental balls for topical anesthesia. Started on Augmentin and recommended outpatient dental follow-up. Discussed signs symptoms of worsening needing return to ER which he seems understanding. Counseled pt/family regarding: diagnosis, need for follow-up Medical Desision Making - Diagnostic Testing Diagnostic test were ordered, analyzed, and reviewed by me: No - Risk of complications The pt has a mod risk of morbidity or mortality based on: Need for prescription drug management - Departure Departure Disposition: Home Clinical Impression: Dental infection Condition: Stable Critical Care Time: No Referrals: GUERO KIDD MD [Primary Care Provider] - Follow up with PCP 1 day Instructions: Tooth Abscess (DC) Additional Instructions: Take Tylenol/ibuprofen as needed for pain relief. Follow-up with your dentist for reevaluation in 1 to 2 days. Return to ER for any worsening of pain swelling or if develop fever chills etc. Prescriptions: Ibuprofen 600 mg PO Q6HPRN PRN 10 Days #20 tablet PRN Reason: Pain Amox Tr/Potass Clav. 875 mg [Augmentin 875-125 Tablet] 875 mg PO BID #14 tablet
[2024-04-07 10:02] VITALS: BP 135/88; PULSE 80; RESP 18
== END 2024-04-07 10:02 | disposition home or self-care (01) ==
LOC: ED 09:22
DX: K04.7 Periapical abscess without sinus (principal); K08.89 Other specified disorders of teeth and supporting structures; Z79.899 Other long term (current) drug therapy
CPT/HCPCS: 96372; 99283; J1885; A9270-GY

== ENCOUNTER 2024-05-23 16:57 | Emergency (ER) | payer OTHER ==
[2024-05-23 17:09] VITALS: BP 117/88; RESP 16; TEMP 97.1
--- NOTE | 2024-05-23 18:21 | ERPHSYRPT ---
- History of Present Illness Time Seen by Provider: 05/23/24 18:16 Source: patient Patient Subjective Stated Complaint: dental pain Triage Nursing Assessment: patient states she has an abscess tooth on bottom left jaw. she has been dealing with this for quite some time however her dentist cannot get her in until june. her lower jaw appears to be swollen Physician History: 28 years old female with no past medical history presenting to the emergency room complaining of pain and swelling to her left lower molar tooth that started this morning. She called her dentist her next appointment is in June. She is denying any other complaint no fever no chills no difficulty swallowing or breathing. She only took Tylenol without any relief. Allergies/Adverse Reactions: No Known Drug Allergies Allergy (Verified 05/23/24 17:09) Hx Tetanus, Diphtheria Vaccination/Date Given: Yes Hx Influenza Vaccination/Date Given: Yes Hx Pneumococcal Vaccination/Date Given: No Travel Risk - International Travel Have you traveled outside of the country in past 3 weeks: No - Emerging Infectious Disease Are you exhibiting symptoms associated with any current EIDs: No - Review of Systems Constitutional: No Symptoms Ears, Nose, & Throat: Other (Left Lower Molar Tooth Ache) All Other Systems: Reviewed and Negative - Past Medical History Pertinent Past Medical History: Yes Neurological History: No Pertinent History ENT History: No Pertinent History Cardiac History: No Pertinent History Respiratory History: No Pertinent History Endocrine Medical History: No Pertinent History Musculoskeletal History: No Pertinent History GI Medical History: No Pertinent History History: No Pertinent History Psycho-Social History: No Pertinent History Female Reproductive Disorders: No Pertinent History Other Medical History: none - Past Surgical History Past Surgical History: Yes Neuro Surgical History: No Pertinent History Cardiac: No Pertinent History Respiratory: No Pertinent History Gastrointestinal: Cholecystectomy Genitourinary: No Pertinent History Musculoskeletal: No Pertinent History Female Surgical History: No Pertinent History - Female History Hx Last Menstrual Period: AUG 03 Hx Now: No - Social History Smoking Status: Never smoker How long have you smoked: 4 yrs Exposure to second hand smoke: No Drug Use: none Patient Lives Alone: No - Social Determinants of Health Will the patient participate in the screening: Yes Do you worry about a steady place to live?: No In the past 12 months,have you had to go without utilities?: No Transportation Issues: No Has anyone in your support network made you feel unsafe?: No Have you or anyone in your house had to go without enough: No - Nursing Vital Signs Nursing Vital Signs: Initial Vital Signs Temperature 97.1 F 05/23/24 17:02 Pulse Rate 91 H 05/23/24 17:02 Respiratory Rate 16 05/23/24 17:02 Blood Pressure 117/88 05/23/24 17:02 O2 Sat by Pulse Oximetry 97 05/23/24 17:02 Pain Scale Pain Intensity 5 - Physical Exam General Appearance: no apparent distress Eye Exam: PERRL/EOMI, eyes nml inspection Ears, Nose, Throat Exam: normal ENT inspection, TMs normal, pharynx normal, other (Left Lower Gum swollen and tender around the Mollar teeth. Decaed mollar tooth) Neck Exam: normal inspection, non-tender, supple, full range of motion Respiratory Exam: normal breath sounds, lungs clear Cardiovascular Exam: regular rate/rhythm, normal heart sounds, normal peripheral pulses Gastrointestinal/Abdomen Exam: soft, normal bowel sounds Pelvic Exam: not done Rectal Exam: deferred Back Exam: normal inspection Extremity Exam: normal inspection, normal range of motion Neurologic Exam: alert, oriented x 3, cooperative, hotel lobby concierge II-XII nml as tested Skin Exam: normal color, warm SpO2 Interpretation: normal SpO2: 97 O2 Delivery: Room Air - Course Nursing assessment & vital signs reviewed: Yes - Progress Progress: unchanged Progress Note: 05/23/24 18:20 The patient is presenting with tooth ache to the left lower molar tooth, woke up with this pain this morning she does have a tooth abscess. She will be discharged home with Augmentin 875 twice a day for 10 days Ibuprofen 800 mg 3 times a day as needed. Mouthwash of Listerine and follow-up with her dentist as scheduled - Departure Departure Disposition: Home Clinical Impression: Dental abscess Condition: Stable Critical Care Time: No Referrals: GUERO KIDD MD [Primary Care Provider] - Follow up/PCP as directed Additional Instructions: Follow-up with your dentist as scheduled Prescriptions: Ibuprofen 800 mg PO Q6H PRN PRN #40 tablet PRN Reason: Pain Amox Tr/Potass Clav. 875 mg [Augmentin 875-125 Tablet] 875 mg PO BID #20 tablet
[2024-05-23 18:31] VITALS: PULSE 84; O2SAT 98
== END 2024-05-23 18:31 | disposition home or self-care (01) ==
LOC: ED 16:57
DX: K04.7 Periapical abscess without sinus (principal); K08.89 Other specified disorders of teeth and supporting structures; Z79.899 Other long term (current) drug therapy
CPT/HCPCS: 99281

== ENCOUNTER 2024-05-30 08:48 | Day surgery (SDC) | payer OTHER ==
--- NOTE | 2024-05-29 18:42 | HP ---
HISTORY AND PHYSICAL HISTORY OF PRESENT ILLNESS: A 28-year-old with 4 children who no longer desires fertility and desires tubal. PAST MEDICAL HISTORY: She denied any chronic illnesses. PAST SURGICAL HISTORY: She had a D and C and cholecystectomy in the past. FAMILY HISTORY: Diabetes. SOCIAL HISTORY: No smoking. No alcohol abuse. MEDICATIONS: She has taken some Adderall in the past for attention deficit. ALLERGIES: No known drug allergies. REVIEW OF SYSTEMS: Twelve systems reviewed. No chest pain or palpitations. Other systems negative or noncontributory as above and per preadmission questionnaire. PHYSICAL EXAMINATION: GENERAL: Height 5 feet 2 inches. BMI 34.57. No acute distress. HEENT: Sclerae nonicteric. NECK: No JVD. CHEST: Equal excursion, nonlabored breathing. CARDIOVASCULAR: Regular rate and rhythm. ABDOMEN: Soft. EXTREMITIES: No cyanosis or edema. NEUROLOGIC: Alert and oriented, moving all extremities symmetrically. SKIN: Dry. PSYCHIATRIC: Appropriate mood and affect. IMPRESSION: Undesired fertility, desires a laparoscopic bilateral tubal cauterization. She was explained the risks in detail to include bleeding; infection; risk of trocar injury; hernia; risk of bowel or bladder, blood vessel, ureter or visceral issues or injury possibly requiring other procedures; general risk of anesthesia, DVT, PE, pneumonia; risk of up to 4% risk of tubal failure rate. She understands as well as risk of anesthesia. Is agreeable with planned procedure. We will proceed with laparoscopic bilateral tubal cauterization as an outpatient. She also understands the importance of other forms of control for a good 6 weeks following the procedure.
[2024-05-30 09:26] LABS: HCG URINE TEST NEGATIVE (NEGATIVE)
[2024-05-30] MEDS: CEFAZOLIN 2 GM/100 ML NaCl 2 GM/100 ML IVPB IV SCH (09:48)
[2024-05-30] MEDS: Lactated Ringers 1,000 ML IV SCH (09:48)
[2024-05-30] MEDS ORDERED: ROCURONIUM BROMIDE IV ONE (12:00)
[2024-05-30] MEDS ORDERED: Versed 2 MG/2 ML Injection ONE (12:00)
[2024-05-30] MEDS ORDERED: SUBLIMAZE 100 MCG/2 ML ONE ×2 (12:01→12:21)
[2024-05-30] MEDS ORDERED: TORAdol 30 mg Injection ONE (12:02)
[2024-05-30] MEDS ORDERED: DIPRIVAN 200 MG/20 ML IV ONE (12:02)
[2024-05-30] MEDS ORDERED: Zofran 4 MG/2 ML VIAL ONE (12:02)
[2024-05-30] MEDS ORDERED: Xylocaine-Mpf 2% 5 Ml Vial ONE (12:02)
[2024-05-30] MEDS ORDERED: Decadron 4 MG INJ ONE (12:02)
[2024-05-30] MEDS ORDERED: DEXMEDETOMIDINE 80 MCG/20ML-NS IV ONE (12:27)
[2024-05-30] MEDS ORDERED: BRIDION 200MG/2ML IV ONE (12:29)
[2024-05-30] MEDS ORDERED: ROBINUL ONE (12:34)
[2024-05-30] MEDS ORDERED: Lactated Ringers 1,000 ML IV ONE (12:36)
[2024-05-30 13:43] VITALS: RESP 16
[2024-05-30 13:59] VITALS: BP 132/73; PULSE 66; TEMP 97.5; O2SAT 98
--- NOTE | 2024-06-01 09:27 | OP ---
SURGERY DATE/TIME: 05/30/2024 [id number] PREOPERATIVE DIAGNOSIS: Acute undesired fertility. Request for laparoscopic bilateral tubal cauterization. POSTOPERATIVE DIAGNOSES: 1) Acute undesired fertility. Request for laparoscopic bilateral tubal cauterization. 2) Some small chocolate-covered spots in the pelvis (? small areas of endometriosis). 3) Hemorrhagic cyst left ovary with a small amount of serosanguineous fluid in the pelvis. PROCEDURE: Laparoscopic bilateral tubal cauterization. SURGEON: Gaetano Tejeda MD ANESTHESIA: General. ESTIMATED BLOOD LOSS: Minimal. INDICATIONS: As above. Risks and benefits explained in detail, but not limited to. Consent was obtained. DESCRIPTION OF PROCEDURE AND FINDINGS: Patient was taken to the operating room. General anesthesia was induced. Patient was prepped and draped in usual sterile fashion. After official time-out, no disagreement in planned procedure. Transverse incision made in supraumbilical area. Fascia grasped and pulled up. Veress needle inserted. Tested with saline. Pneumoperitoneum accomplished using an opening pressure of 0 to 15. A 5 mm bladeless port and camera inserted without difficulty followed via left lower 5 mm port and a right lower quadrant 5 mm port sites under visualization of the camera. In the beginning of having the camera in there, had some small amount of serosanguineous fluid down in the pelvis. Had a small ovarian cyst that was dripping a little bit of serosanguineous bloody fluid. Was felt to have a hemorrhagic cyst. Otherwise, there were a few chocolate spots down in the pelvis. A picture was taken. At this point, she desired the tubal cauterization. First, the left tube was elevated upward, and using the Kleppinger-type bipolar system, carefully cauterized a 3.5 to 4 cm segment of the tube on the left and then repeated this on the right, elevating the tube well away from the retroperitoneum and pelvic sidewall. Pictures were taken. Good hemostasis was noted. The bipolar cauterization was then accomplished down to an ohms meter reading of 0. The patient tolerated the procedure well. There were no immediate complications. At this point, there was no evidence of any visceral or other issues. Her preop small amount of serosanguineous fluid then irrigated out of the pelvis, irrigated clear. The pneumoperitoneum was decompressed. Skin incisions were closed with 4-0 Vicryl. Marcaine 0.25% local injected along each skin incision and fascial defect. The patient tolerated the procedure well. There were no immediate complications.
== END 2024-05-30 14:10 | disposition home or self-care (01) ==
LOC: SDC 08:48
PROVIDERS: ATTEND Surgery
DX: Z30.2 Encounter for sterilization (principal); N80.359 Endometriosis of pelvic sidewall, unspecified side, unspecified depth; N83.202 Unspecified ovarian cyst, left side
CPT/HCPCS: 81025; J0690; J1100; J1885; J2250; J2405; J2704; J3010

== ENCOUNTER 2024-11-13 11:18 | Emergency (ER) | payer OTHER ==
[2024-11-13 11:30] VITALS: BP 122/77; PULSE 78; RESP 19; TEMP 97.7; O2SAT 98
--- NOTE | 2024-11-13 12:16 | ERPHSYRPT ---
- History of Present Illness Time Seen by Provider: 11/13/24 12:05 Source: patient Exam Limitations: no limitations Patient Subjective Stated Complaint: C/O tooth abscess. States began hurting last night. Left side of jaw. Triage Nursing Assessment: Patient ambulated back to ER. She is alert and oriented. No SOB. Denies trouble swallowing. Swelling noted to left side mouth gums. Cavities. Physician History: 29yo f presents by private vehicle for left sided tooth ache and swelling of the lower jaw. Pt reports the pain has been ongoing for several days, reports swelling developed last night, pt denies any fevers or body aches, has been able to tolerate oral intake w/o difficulty. Pt denies any difficulty swallowing or neck pain. Timing/Duration: yesterday Severity: moderate Modifying Factors: Improves With: nothing Associated Symptoms: No nausea, No vomiting, No abdominal pain, No shortness of breath, No fever Allergies/Adverse Reactions: No Known Drug Allergies Allergy (Verified 11/13/24 11:21) Home Medications: Dextroamphetamine/Amphetamine [Adderall Xr 20 mg Capsule] 20 mg PO DAILY 11/13/24 [History] Hx Tetanus, Diphtheria Vaccination/Date Given: Yes Hx Influenza Vaccination/Date Given: Yes Hx Pneumococcal Vaccination/Date Given: No Immunizations Up to Date: Yes Travel Risk - International Travel Have you traveled outside of the country in past 3 weeks: No - Emerging Infectious Disease Are you exhibiting symptoms associated with any current EIDs: No - Review of Systems Constitutional: No Symptoms Ears, Nose, & Throat: Mouth Pain, Mouth Swelling, No Throat Swelling, No Hoarse, No Painful Swallowing, No Stridor Respiratory: No Symptoms Cardiac: No Symptoms - Past Medical History Pertinent Past Medical History: Yes Neurological History: No Pertinent History ENT History: No Pertinent History Cardiac History: No Pertinent History Respiratory History: No Pertinent History Endocrine Medical History: No Pertinent History Musculoskeletal History: No Pertinent History GI Medical History: No Pertinent History History: No Pertinent History Psycho-Social History: Attention Deficit Disorder Female Reproductive Disorders: No Pertinent History - Past Surgical History Past Surgical History: Yes Neuro Surgical History: No Pertinent History Cardiac: No Pertinent History Respiratory: No Pertinent History Gastrointestinal: Cholecystectomy Genitourinary: No Pertinent History Musculoskeletal: No Pertinent History Female Surgical History: Dilation & Curettage, Tubal Ligation - Female History Hx Last Menstrual Period: 05/23/24 Hx Now: No (tubal) - Social History Smoking Status: Never smoker Exposure to second hand smoke: No Drug Use: none - Social Determinants of Health Will the patient participate in the screening: Yes Do you worry about a steady place to live?: No Do you have any problems with any of the following?: No known problems In the past 12 months,have you had to go without utilities?: No Transportation Issues: No Has anyone in your support network made you feel unsafe?: No Have you or anyone in your house had to go w/o enough food: No - Nursing Vital Signs Nursing Vital Signs: Initial Vital Signs Temperature 97.7 F 11/13/24 11:23 Pulse Rate 78 11/13/24 11:23 Respiratory Rate 19 11/13/24 11:23 Blood Pressure 122/77 11/13/24 11:23 O2 Sat by Pulse Oximetry 98 11/13/24 11:23 Pain Scale Pain Intensity 10 - Physical Exam General Appearance: no apparent distress, alert Ears, Nose, Throat Exam: pharynx normal, moist mucous membranes, other (left sided lower mandible swelling appreciated, small abcess visible below left lower molars, minimal swelling palpable over left lower mandible), No tonsillar exudate Neck Exam: normal inspection, non-tender, No lymphadenopathy, No subcutaneous emphysema Respiratory Exam: normal breath sounds, airway intact, No respiratory distress Cardiovascular Exam: regular rate/rhythm, normal heart sounds SpO2: 98 Ordered Tests: Medication Summary Discontinued Medications Generic Name Dose Route Start Last Admin Trade Name Freq PRN Reason Stop Dose Admin Ketorolac Tromethamine 30 mg 11/13/24 12:11 11/13/24 12:19 Ketorolac Tromethamine 30 Mg/Ml Inj IM 11/13/24 12:12 30 mg STAT ONE Administration Ketorolac Tromethamine Confirm 11/13/24 12:18 Ketorolac Tromethamine 30 Mg/Ml Inj Administered 11/13/24 12:19 Dose 30 mg .ROUTE .STK-MED ONE - Progress Progress: unchanged Progress Note: 11/13/24 12:43 will give dose of toradol and discharge w/ augmentin Counseled pt/family regarding: diagnosis, need for follow-up Medical Desision Making - Risk of complications Minimal Risk: Minimal risk of morbidity - Departure Departure Disposition: Home Clinical Impression: Dental infection Condition: Stable Critical Care Time: No Referrals: GUERO KIDD MD [Primary Care Provider] - Follow up/PCP as directed Additional Instructions: given list of local dentists, instructed to get appointment as soon as available will prescribe course of augmentin twice a day for 7 days follow up w/ PCP - Rocky w/in 1 wks do not use any ibuprofen or naproxen (NSAID medications) for the next 24 hours return to ED if - develop fevers, develop pain in Prescriptions: Amox Tr/Potass Clav. 875 mg [Augmentin 875-125 Tablet] 875 mg PO BID 7 Days #14 tablet
[2024-11-13] MEDS ORDERED: TORAdol 30 mg Injection ONE (12:18)
[2024-11-13] MEDS: TORAdol 30 mg Injection IM ONE (12:19)
== END 2024-11-13 12:54 | disposition home or self-care (01) ==
LOC: ED 11:18
DX: K04.7 Periapical abscess without sinus (principal); K08.89 Other specified disorders of teeth and supporting structures; Z79.899 Other long term (current) drug therapy
CPT/HCPCS: 96372; 99282; 99283; J1885